=== PATIENT | male | born 1960 | race African-American/Black ===

== ENCOUNTER 2016-09-20 16:15 | Inpatient (IN) | payer OTHER ==
--- NOTE | 2016-09-20 16:34 | PDOC ---
History of Present Illness - History of Present Illness Initial Comments: 09/20/16 17:05 The patient is a 55 year old with a past medical hx of autism, type 2 diabetes mellitus, hyperlipidemia, hypertension who presents to the ED via EMS for evaluation of a possible seizure while he was on the bus ride home from school. Per EMS, the business banking manager noted the patient had a seizure for 2-3 minutes, the nature of the seizure is unknown. The business banking manager states the patient vomited and defecated. EMS notes he has been post-ictal ever since and his blood pressure was 110/70 en route to the ED. The family denies a hx of seizure, and there has been no change in medications. The patient was in his usual state of health in the morning before he left for school. The patient lives with sister and brother in law. Allergies: NKDA Social:Lives at home with his sister and brother in law. Surgical: None reported PCP: N/A <Connie Salinas - Last Filed: 09/20/16 17:15> <Trevor Sorto - Last Filed: 09/20/16 20:28> - General History Source: EMS, Old Records Exam Limitations: Clinical Condition <Aniya Simons - Last Filed: 09/21/16 09:40> - General Stated Complaint: SEIZURES Time Seen by Provider: 09/20/16 16:33 Past History <Connie Salinas - Last Filed: 09/20/16 17:15> <Trevor Sorto - Last Filed: 09/20/16 20:28> - Past Medical History Diabetes: Yes HTN: Yes - Immunization History Immunization Up to Date: Yes - Psycho/Social/Smoking Cessation Hx Anxiety: No Suicidal Ideation: No Smoking History: Never smoked Have you smoked in the past 12 months: No Hx Alcohol Use: No Drug/Substance Use Hx: No Substance Use Type: None Hx Substance Use Treatment: No <Aniya Simons - Last Filed: 09/21/16 09:40> - Past Medical History Allergies/Adverse Reactions: Allergies Allergy/AdvReac Type Severity Reaction Status Date / Time No Known Allergies Allergy Verified 09/20/16 18:07 Home Medications: Ambulatory Orders Atorvastatin Ca [Lipitor] 40 mg PO HS 01/15/14 Metformin HCl [Glucophage -] 500 mg PO BID 01/15/14 Risperidone [Risperdal] 0.25 mg PO DAILY 01/15/14 Lisinopril 5 mg PO DAILY 08/26/16 Sertraline HCl [Zoloft -] 100 mg PO DAILY 08/26/16 Amox-Tr/K Cl [Augmentin 875-125mg Tablet -] 1 tab PO BID@0800,1730 #12 tablet Ferrous Sulfate [Feosol] 325 mg PO TIDCM ud 09/03/16 Pantoprazole Sodium [Protonix -] 40 mg PO DAILY #30 tablet.ec 09/03/16 Clarithromycin 500 mg PO BID 09/20/16 Omeprazole 20 mg PO BID 09/20/16 Review of Systems - Review of Systems Able to Perform ROS?: No (clinical condition) <Connie Salinas - Last Filed: 09/20/16 17:15> *Physical Exam - Physical Exam Comments: 09/20/16 17:15 GENERAL: +Post-ictal. The patient is in no acute distress. Responds to name. HEAD: Normal with no signs of trauma. EYES: PERRLA, sclera anicteric, conjunctiva clear. ENT: Ears normal, nares patent, oropharynx clear without exudates. Moist mucous membranes. NECK: Normal range of motion, supple without lymphadenopathy, JVD, or masses. LUNGS: Breath sounds equal, clear to auscultation bilaterally. No wheezes, and no crackles. HEART:Regular rate and rhythm, normal S1 and S2 without murmur, rub or gallop. ABDOMEN: Soft, nontender, normoactive bowel sounds. No guarding, no rebound. EXTREMITIES: Normal range of motion, no edema. No clubbing or cyanosis. No erythema, or tenderness. NEUROLOGICAL: +Post-ictal, not responding to commands. MUSCULOSKELETAL: No obvious deformities SKIN: Warm, Dry, normal turgor, no rashes or lesions noted. <Connie Salinas - Last Filed: 09/20/16 17:15> - Vital Signs Last Vital Signs Temp Pulse Resp BP Pulse Ox 100.6 F H 144 H 25 H 181/97 95 09/20/16 20:01 09/20/16 20:01 09/20/16 20:01 09/20/16 20:01 09/20/16 20:01 <Trevor Sorto - Last Filed: 09/20/16 20:28> Heart Score/ECG Review #1 ECG reviewed & interpreted by me at: 19:15 09/20/16 19:15 Twelve-lead EKG was performed and reviewed by me. There is normal sinus rhythm with a tachycardiac rate of 122 bpm. Right axis deviation. RBBB. T wave inversion III <Aniya Simons - Last Filed: 09/21/16 09:40> ED Treatment Course - LABORATORY CBC & Chemistry Diagram: 09/20/16 17:58 09/20/16 17:58 - ADDITIONAL ORDERS Additional order review: Laboratory Results 09/20/16 09/20/16 20:10 17:58 Puncture Site Right radial ABG pH 7.40 ABG pCO2 at Pt Temp 34.2 L ABG pO2 at Pt Temp 73.7 L ABG HCO3 20.5 L ABG O2 Sat (Measured) 93.1 ABG O2 Content 14.1 L ABG Base Excess -3.2 L Waqas Test Positive Carboxyhemoglobin 0.7 Methemoglobin 2.3 H O2 Delivery Device Nonrebreather Oxygen Flow Rate 100% PEEP 0.0 Sodium 140 Potassium 4.1 Chloride 103 Carbon Dioxide 26 Anion Gap 11 BUN 11 D Creatinine 0.9 Creat Clearance w eGFR > 60 Random Glucose 155 H D Calcium 8.5 Total Bilirubin 0.3 AST 16 D ALT 21 D Alkaline Phosphatase 75 Creatine Kinase 74 Troponin I < 0.02 Total Protein 6.7 Albumin 3.3 L 09/20/16 17:58 RBC 4.50 MCV 70.5 L MCHC 31.1 L RDW 19.6 H MPV 6.4 L Neutrophils % 69.8 D Lymphocytes % 19.6 D Monocytes % 10.2 Eosinophils % 0.1 D Basophils % 0.3 <Trevor Sorto - Last Filed: 09/20/16 20:28> - LABORATORY CBC & Chemistry Diagram: 09/21/16 06:05 09/21/16 06:05 <Aniya Simons - Last Filed: 09/21/16 09:40> Medical Decision Making - Medical Decision Making A portion of this note was documented by scribe services under my direction. I have reviewed the details of the note, within reason, and agree with the documentation with the following case summary and management plan written by me. Nursing documentation reviewed and incorporated into medical decision making 55 yo M h/o developmental delay, lives with his sister Pt goes to a day program While on the bus home, pt apparently had a seizure He slumped forward, vomited, no rhythmic shaking reported No rhythmic shaking noted (+) incontinent of stool Upon arrival to the ER, pt somnolent, responsive to his name Did not say words or follow commands Pt family members now present to give additional history They state that this patient is largely non verbal He says a few words, like, "Eat, popcorn, cookie" Pt upon their arrival was more awake When asked how he is doing, pt responds "Eat" No pain on palpation of the abdomen No cough or rhonchi No bruising or deformity noted of the head No nuchal rigidity pt responds to commands ("lift legs", "squeeze hand") No history of seizures in the past Only new meds are for H. pylori (Clarthromycin, Amoxiciillin) No recent travel No known head trauma DD includes: Stroke, Intra cranial mass, Intracranial hemorrhage, Infection, Metabolc Disturbance/Electrolyte abnormality, epilepsy Will do: basic labs, head CT, cervical spine CT, UA, Urine culture Will re assess No fever on initial examination Pt back to his mental baseline after a post ictal period Upon re assessment, Pt feeding himself crackers and water Pt pushed away the sandwich given to him Noted to be tremulous Chart reviewed Pt reported to me as Afebrile but temp not documented Although less likely given pt mentation back to normal, Pt still needs rectal temp as this is possibly still on the differential Pt awaiting CT, labs, temp Pt signed out to Dr Sorto for further management at 7:15pm I have explained to pt family that he will need to be admitted <Aniya Simons - Last Filed: 09/21/16 09:40> *DC/Admit/Observation/Transfer - Attestations Scribe Attestion: 09/20/16 16:54 Documentation prepared by Connie Salinas, acting as medical office manager for Aniya Simons MD/. <Connie Salinas - Last Filed: 09/20/16 17:15> <Trevor Sorto - Last Filed: 09/20/16 20:28> <Aniya Simons - Last Filed: 09/21/16 09:40> Diagnosis at time of Disposition: New onset seizure, Tachycardia
[2016-09-20 18:07] VITALS: BMI 24.3
[2016-09-20 18:15] LABS: BASOPHIL 0.3 % (0-2.0); EOSINOPHIL 0.1 % (0-4.5); MCH 21.9 pg (25.7-33.7); MCHC 31.1 g/dl (32.0-35.9); MEAN CELL VOLUME 70.5 fl (80-96); MEAN PLT VOLUME 6.4 fl (7.5-11.1); NEUTROPHILS 69.8 % (42.8-82.8); PLATELET COUNT 237 K/MM3 (134-434); RDW 19.6 % (11.9-15.9); WHITE BLOOD COUNT 9.1 K/mm3 (4.0-10.0)
[2016-09-20 18:38] LABS: ALBUMIN 3.3 g/dl (3.4-5.0); ANION GAP 11 (8-16); BILIRUBIN,TOTAL 0.3 mg/dL (0.2-1.0); CALCIUM 8.5 mg/dL (8.5-10.1); CO2 26 mmol/L (21-32); CREATININE 0.9 mg/dL (0.7-1.3); GLUCOSE,RANDOM 155 mg/dL (74-106); SGOT/AST 16 U/L (15-37); SGPT/ALT 21 U/L (12-78); TOT PROT 6.7 g/dl (6.4-8.2)
[2016-09-20 18:40] LABS: ALK PHOS 75 U/L (45-117); TROPONIN I < 0.02 ng/ml (0.00-0.05)
[2016-09-20 18:55] LABS: ANISOCYTOSIS 1+; HYPOCHROMIA 2+; PLATELET COMMENT2 NO CLOTTING DETECTED; PLATELET ESTIMATE ADEQUATE (NORMAL)
[2016-09-20 20:13] LABS: ARTERIAL BLD GAS O2 SATURATION 93.1 % (90-98.9); ARTERIAL BLOOD GAS BASE EXCESS -3.2 meq/l (-2-2); ARTERIAL BLOOD GAS HCO3 20.5 meq/L (22-26); ARTERIAL BLOOD GAS PO2 73.7 mmHg (80-100)
[2016-09-20 20:14] LABS: ALLENS TEST POSITIVE; ART PUNCT SITE RIGHT RADIAL; LPM/O2% 100%; METHEMOGLOBIN 2.3 % (0.4-1.5); PT. ON O2? YES; TYPE OF O2 NONREBREATHER
--- NOTE | 2016-09-20 20:29 | PDOC ---
*Physical Exam - Vital Signs Last Vital Signs Temp Pulse Resp BP Pulse Ox 100.6 F H 144 H 25 H 181/97 95 09/20/16 20:01 09/20/16 20:01 09/20/16 20:01 09/20/16 20:01 09/20/16 20:01 ED Treatment Course - LABORATORY CBC & Chemistry Diagram: 09/20/16 17:58 09/20/16 17:58 - ADDITIONAL ORDERS Additional order review: Laboratory Results 09/20/16 09/20/16 20:10 17:58 Puncture Site Right radial ABG pH 7.40 ABG pCO2 at Pt Temp 34.2 L ABG pO2 at Pt Temp 73.7 L ABG HCO3 20.5 L ABG O2 Sat (Measured) 93.1 ABG O2 Content 14.1 L ABG Base Excess -3.2 L Waqas Test Positive Carboxyhemoglobin 0.7 Methemoglobin 2.3 H O2 Delivery Device Nonrebreather Oxygen Flow Rate 100% PEEP 0.0 Sodium 140 Potassium 4.1 Chloride 103 Carbon Dioxide 26 Anion Gap 11 BUN 11 D Creatinine 0.9 Creat Clearance w eGFR > 60 Random Glucose 155 H D Calcium 8.5 Total Bilirubin 0.3 AST 16 D ALT 21 D Alkaline Phosphatase 75 Creatine Kinase 74 Troponin I < 0.02 Total Protein 6.7 Albumin 3.3 L 09/20/16 17:58 RBC 4.50 MCV 70.5 L MCHC 31.1 L RDW 19.6 H MPV 6.4 L Neutrophils % 69.8 D Lymphocytes % 19.6 D Monocytes % 10.2 Eosinophils % 0.1 D Basophils % 0.3 *DC/Admit/Observation/Transfer Diagnosis at time of Disposition: New onset seizure, Tachycardia - Discharge Dispostion Condition at time of disposition: Stable Admit: Yes
[2016-09-20 20:37] LABS: URINE APPEARANCE CLEAR; URINE BILIRUBIN NEGATIVE (NEGATIVE); URINE BLOOD NEGATIVE (NEGATIVE); URINE COLOR YELLOW; URINE GLUCOSE (UA) NEGATIVE (NEGATIVE); URINE KETONE TRACE (NEGATIVE); URINE LEUK ESTERASE NEGATIVE (NEGATIVE); URINE NITRITE NEGATIVE (NEGATIVE); URINE UROBILINOGEN 2.0 E.U/dl E.U./dl (0.2-1.0)
[2016-09-20 20:39] LABS: URINE PROTEIN 1+ (NEGATIVE)
[2016-09-20 20:40] LABS: URINE RBC 2 /hpf (0-3); URINE WBC 3 /hpf (3-5)
[2016-09-20 20:41] LABS: URINE MUCUS FEW
[2016-09-20] MEDS ORDERED: ACETAMINOPHEN 1000 MG/100 ML VIAL (NON FORMULARY) IVPB ONE (22:34)
[2016-09-20] MEDS ORDERED: ATORVASTATIN CA 40 MG TABLET (FP) ONE (22:36)
[2016-09-20] MEDS ORDERED: ACETAMINOPHEN INJECTION 100 ML IVPB ONE (22:36)
[2016-09-20] MEDS: ATORVASTATIN CA 40 MG TABLET (FP) PO SCH (22:57)
[2016-09-20] MEDS ORDERED: INSULIN (NOVOLOG) ASPART 100 UNITS/ML 10ML VIAL ONE (23:53)
[2016-09-20] MEDS: INSULIN SLIDING SCALE (NOVOLOG) 1 VIAL SQ SCH (23:57)
[2016-09-21 01:06] LABS: TROPONIN I < 0.02 ng/ml (0.00-0.05)
[2016-09-21] MEDS: INSULIN SLIDING SCALE (NOVOLOG) 1 VIAL SQ SCH ×4 (06:15→22:37)
[2016-09-21 08:23] LABS: MCH 22.2 pg (25.7-33.7); MCHC 31.5 g/dl (32.0-35.9); MEAN CELL VOLUME 70.5 fl (80-96); MEAN PLT VOLUME 6.9 fl (7.5-11.1); PLATELET COUNT 176 K/MM3 (134-434); WHITE BLOOD COUNT 23.6 K/mm3 (4.0-10.0)
[2016-09-21] MEDS: LISINOPRIL 5 MG TABLET (FP) PO SCH ×2 (08:33→09:13)
[2016-09-21] MEDS: PANTOPRAZOLE 40 MG TABLET (FP) PO SCH ×2 (08:33→09:13)
[2016-09-21] MEDS: SERTRALINE HCL 50 MG TABLET (FP) PO SCH ×2 (08:33→09:14)
[2016-09-21] MEDS: metFORMIN HCL 500 MG TABLET (FP) PO SCH ×2 (08:33→16:43)
[2016-09-21] MEDS: FERROUS SO4 325 MG TABLET (FP) PO SCH ×3 (08:33→17:04)
[2016-09-21 08:53] LABS: ALBUMIN 3.3 g/dl (3.4-5.0); ALK PHOS 83 U/L (45-117); ANION GAP 12 (8-16); BILIRUBIN,TOTAL 0.7 mg/dL (0.2-1.0); CALCIUM 8.7 mg/dL (8.5-10.1); CO2 27 mmol/L (21-32); CREATININE 0.7 mg/dL (0.7-1.3); GLUCOSE,RANDOM 82 mg/dL (74-106); SGOT/AST 80 U/L (15-37); SGPT/ALT 106 U/L (12-78); TOT PROT 6.5 g/dl (6.4-8.2); TROPONIN I < 0.02 ng/ml (0.00-0.05)
[2016-09-21] MEDS: risperiDONE 0.25 MG TABLET (FP) PO SCH (09:14)
--- NOTE | 2016-09-21 09:19 | HP ---
Admitting History and Physical - Admission History of Present Illness: 55 year old with a past medical hx of autism, type 2 diabetes mellitus, hyperlipidemia, hypertension who presents to the ED via EMS for evaluation of a possible seizure while he was on the bus ride home from school. Per EMS, the business continuity planner noted the patient had a seizure for 2-3 minutes, the nature of the seizure is unknown. The business continuity planner states the patient vomited and defecated. EMS notes he has been post-ictal ever since and his blood pressure was 110/70 en route to the ED. The family denies a hx of seizure, and there has been no change in medications. The patient was in his usual state of health in the morning before he left for school. The patient lives with sister and brother in law. 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) Cardiovascular: Yes: HTN, Hyperlipdemia Pulmonary: No: COPD Endocrine: Yes: Diabetes Mellitus - Smoking History Smoking history: Never smoked Have you smoked in the past 12 months: No - Alcohol/Substance Use Hx Alcohol Use: No Home Medications - Allergies Allergies/Adverse Reactions: Allergies Allergy/AdvReac Type Severity Reaction Status Date / Time No Known Allergies Allergy Verified 09/20/16 18:07 - Home Medications Home Medications: Ambulatory Orders Atorvastatin Ca [Lipitor] 40 mg PO HS 01/15/14 Metformin HCl [Glucophage -] 500 mg PO BID 01/15/14 Risperidone [Risperdal] 0.25 mg PO DAILY 01/15/14 Lisinopril 5 mg PO DAILY 08/26/16 Sertraline HCl [Zoloft -] 100 mg PO DAILY 08/26/16 Amox-Tr/K Cl [Augmentin 875-125mg Tablet -] 1 tab PO BID@0800,1730 #12 tablet Ferrous Sulfate [Feosol] 325 mg PO TIDCM ud 09/03/16 Pantoprazole Sodium [Protonix -] 40 mg PO DAILY #30 tablet.ec 09/03/16 Clarithromycin 500 mg PO BID 09/20/16 Omeprazole 20 mg PO BID 09/20/16 Review of Systems Unable to obtain ROS, reason: DUE TO AUTISM Physical Examination Vital Signs: Vital Signs Temperature 98.0 F 09/21/16 06:00 Pulse Rate 96 H 09/21/16 06:00 Respiratory Rate 20 09/21/16 06:00 Blood Pressure 111/59 09/21/16 06:00 O2 Sat by Pulse Oximetry (%) 100 09/21/16 02:25 Eyes: Yes: Conjunctiva Clear HENT: No: Pharyngeal Erythema Cardiovascular: Yes: Tachycardia, S1, S2 Respiratory: Yes: Regular, CTA Bilaterally Gastrointestinal: Yes: Normal Bowel Sounds, Soft. No: Tenderness Edema: No Neurological: Yes: Alert, Pre-Existing Deficit Labs: CBC, BMP 09/21/16 06:05 09/21/16 06:05 Imaging - Results Chest X-ray: Report Reviewed (NAD) Cat Scan: Report Reviewed (NAD) Problem List - Problems (1) New onset seizure Assessment/Plan: W/U INITIATED NEURO CONSULT Code(s): R56.9 - UNSPECIFIED CONVULSIONS (2) Tachycardia Assessment/Plan: MAYBE DUE TO FEVER MONITOR Code(s): R00.0 - TACHYCARDIA, UNSPECIFIED (3) Developmental disability Code(s): F89 - UNSPECIFIED DISORDER OF PSYCHOLOGICAL DEVELOPMENT (4) Hypertension Assessment/Plan: MONITOR ON JUANI Code(s): I10 - ESSENTIAL (PRIMARY) HYPERTENSION (5) Fever Assessment/Plan: R/O ASPIRATION BC CXR ABX ID Code(s): R50.9 - FEVER, UNSPECIFIED (6) Leukocytosis Assessment/Plan: ABOVE Code(s): D72.829 - ELEVATED WHITE BLOOD CELL COUNT, UNSPECIFIED (7) Anemia Assessment/Plan: MONITOR W/U ORDERED GI Code(s): D64.9 - ANEMIA, UNSPECIFIED (8) Abnormal LFTs Assessment/Plan: FOLLOW LABS US GI Code(s): R79.89 - OTHER SPECIFIED ABNORMAL FINDINGS OF BLOOD CHEMISTRY
--- NOTE | 2016-09-21 09:43 | CONSULT ---
Consultation: REQUESTING PROVIDER: CONSULT REQUEST: We have been asked to medically evaluate this patient for fever. HISTORY OF PRESENT ILLNESS: Unable to obtain history from the patient. Hence obtained from his sister over the phone. 55 year old male was brought in via EMS after a witnessed seizure. Patient was returning from a pre-vocational school to home and the business systems lead noticed seizure (type unknown) lasted for 2-3 minutes along with vomiting and defecation. No past h/o of seizure. Patient got recently diagnosed with H. pylori and was given triple therapy ( Augmentin, Clarithromycin, pantoprazole taken since 3 days, hasn't completed the two week course). Patient was recently admitted here at [facility] and was treated for cellulitis for right index finger. Past Medical Hx: DM-II, HTN, HLD, Autism, H.pylori Allergies: NKDA Hospitalization: last admission 08/26/16 for cellulitis of right index finger Social Hx- Never smoked, never took alcohol, no illicit drug use Baseline: Patient able to walk, do his daily activities, never on diapers, able to speak words like "popcorn, eat, sit". Patient has been living with his sister and brother in law since 16 years. He has a alf placement starting the end of September. PCP: Dr. Peres ([facility]) REVIEW OF SYSTEMS: couldn't be obtained PHYSICAL EXAMINATION Vital Signs - 24 hr 09/20/16 09/20/16 09/21/16 21:00 22:58 00:19 Temperature 100.2 F H Pulse Rate Pulse Rate [ 134 H 137 H Radial] Respiratory 38 H 30 H Rate Blood Pressure Blood Pressure 125/66 96/53 [Left Arm] O2 Sat by Pulse 100 100 Oximetry (%) 09/21/16 09/21/16 09/21/16 00:25 00:30 02:25 Temperature 99.6 F Pulse Rate 104 H Pulse Rate [ 101 H Radial] Respiratory 21 20 Rate Blood Pressure 110/60 Blood Pressure 119/64 [Left Arm] O2 Sat by Pulse 100 100 Oximetry (%) 09/21/16 06:00 Temperature 98.0 F Pulse Rate 96 H Pulse Rate [ Radial] Respiratory 20 Rate Blood Pressure 111/59 Blood Pressure [Left Arm] O2 Sat by Pulse Oximetry (%) GENERAL: Awake, alert, in no acute distress. HEAD: Normal with no signs of trauma. EYES: PEERLA, no pallor or icterus. EARS, NOSE, THROAT: Ears normal. NECK: Supple. LUNGS: Uncooperative hence couldn't listen to added sounds. HEART: S1, S2 no murmur. ABDOMEN: Soft, nontender, not distended, normoactive bowel sounds, no guarding, no rebound, no masses. No hepatomegaly or splenomegaly. MUSCULOSKELETAL: Normal range of motion at all joints. No bony deformities or tenderness. No CVA tenderness. UPPER EXTREMITIES: 2+ pulses, warm, well-perfused. No cyanosis. No clubbing. Cap refill <2 seconds. No peripheral edema. LOWER EXTREMITIES: 2+ pulses, warm, well-perfused. No calf tenderness. No peripheral edema. NEUROLOGICAL: Cranial nerves II-XII intact. Reflexes intact. Spoke single words like "popcorn, eat, sit" PSYCHIATRIC:Poor eye contact. Appropriate mood and affect. SKIN: Warm, dry, normal turgor, no rashes or lesions noted. Laboratory Results - last 24 hr 09/20/16 09/21/16 09/21/16 22:54 00:26 06:05 WBC 23.6 H D RBC 4.45 Hgb 9.9 L Hct 31.4 L MCV 70.5 L MCHC 31.5 L RDW 20.0 H Plt Count 176 D MPV 6.9 L Neutrophils % Y Lymphocytes % Y Sodium Potassium Chloride Carbon Dioxide Anion Gap BUN Creatinine Creat Clearance w eGFR POC Glucometer [phone] Random Glucose Calcium Total Bilirubin AST ALT Alkaline Phosphatase Creatine Kinase 145 Troponin I < 0.02 Total Protein Albumin 09/21/16 09/21/16 06:05 06:14 WBC RBC Hgb Hct MCV MCHC RDW Plt Count MPV Neutrophils % Lymphocytes % Sodium 140 Potassium 3.5 Chloride 101 Carbon Dioxide 27 Anion Gap 12 BUN 13 Creatinine 0.7 D Creat Clearance w eGFR > 60 POC Glucometer 97 Random Glucose 82 D Calcium 8.7 Total Bilirubin 0.7 D AST 80 H D ALT 106 H D Alkaline Phosphatase 83 Creatine Kinase 243 D Troponin I < 0.02 Total Protein 6.5 Albumin 3.3 L Active Medications Generic Name Dose Route Start Last Admin Trade Name Freq PRN Reason Stop Dose Admin Atorvastatin Calcium 40 mg 09/20/16 22:00 09/20/16 22:57 Lipitor - PO 40 mg HS INEZ Administration Ferrous Sulfate 325 mg 09/21/16 08:00 09/21/16 08:33 Feosol - PO 325 mg TIDCM INEZ Administration Ceftriaxone Sodium 1 gm/ 100 mls @ 200 mls/hr 09/21/16 10:00 Dextrose IVPB DAILY [facility] Insulin Aspart 1 vial 09/20/16 22:00 09/21/16 06:15 Novolog Vial Sliding Scale - SQ Not Given ACHS [facility] Protocol Lisinopril 5 mg 09/21/16 10:00 09/21/16 09:13 Prinivil PO Not Given DAILY [facility] Metformin HCl 500 mg 09/21/16 07:00 09/21/16 08:33 Glucophage - PO 500 mg BIDI INEZ Administration Pantoprazole Sodium 40 mg 09/21/16 10:00 09/21/16 09:13 Protonix - PO Not Given DAILY [facility] Risperidone 0.25 mg 09/21/16 10:00 09/21/16 09:14 Risperdal - PO Not Given DAILY INEZ Sertraline HCl 100 mg 09/21/16 10:00 09/21/16 09:14 Zoloft - PO Not Given DAILY [facility] 55 year old male with significant past medical history of Autism, DM, HTN, HLD, H. pylori was brought in via EMS after a witnessed seizure. Assessment:- 1. Witnessed Seizure 2. Possible aspiration pneumonia 3. Austism 4. HTN 5. HLD 6. DM-II 7. H. pylori recently diagnosed Plan:- - Unusual to have new onset seizure at the age of 55 years, could be due to metabolic syndrome vs epilepsy - CT head negative. EEG ordered. - Possible aspiration pneumonia given the h/o vomiting post seizure. CXR showed new Right patchy infiltrate. Initial CXR was negative - Blood cultures/Urine cultures pending- results may alter since patient was being given triple therapy (clarithromycin, pantoprazole, augmentin) for H. pylori. - Patient started on Ceftriaxone and Metronidazole - Monitor for seizure activity Illness, Investigation and Plan of care explained to the patient's sister over the phone. She verbalized understanding. Case seen and discussed with Dr. Coronel. Thank you for the consultative opportunity. Visit type - Emergency Visit Emergency Visit: Yes ED Registration Date: 09/20/16 Care time: The patient presented to the Emergency Department on the above date and was hospitalized for further evaluation of their emergent condition. - New Patient This patient is new to me today: Yes Date on this admission: 09/21/16 - Critical Care Critical Care patient: No
[2016-09-21] MEDS ORDERED: CEFTRIAXONE 1 GM in DEXTROSE 5%-WATER - 100 ML IVPB SCH (10:00)
[2016-09-21] MEDS ORDERED: PATIENT'S OWN MEDICATION (NON-FORMULARY) (Sertraline Hcl 100 MG) PO SCH (10:00)
[2016-09-21 10:50] LABS: ANISOCYTOSIS 1+; PLATELET ESTIMATE ADEQUATE (NORMAL)
[2016-09-21 10:51] LABS: HYPOCHROMIA 1+
[2016-09-21] MEDS: cefTRIAXone 1 GM/50 ML BAG (PRE-DOCKED) IVPB SCH (11:10)
--- NOTE | 2016-09-21 11:25 | EKG ---
Test Reason : Blood Pressure : / mmHG Vent. Rate : 122 BPM Atrial Rate : 122 BPM P-R Int : 116 ms QRS Dur : 118 ms QT Int : 338 ms P-R-T Axes : 043 169 008 degrees QTc Int : 481 ms SINUS TACHYCARDIA POSSIBLE LEFT ATRIAL ENLARGEMENT RIGHT BUNDLE BRANCH BLOCK LEFT POSTERIOR FASCICULAR BLOCK BIFASCICULAR BLOCK POSSIBLE INFERIOR INFARCT (CITED ON OR BEFORE 09-OCT-2003) ABNORMAL ECG Confirmed by JENNI KENDALL MD ([id number]) on 09/21/2016 11:25:04 AM Referred By: Confirmed By:JENNI KENDALL MD
[2016-09-21 11:42] LABS: FERRITIN 18.35 ng/ml (16.4-293.9); THYROID STIMULATING HORMONE 1.45 uIU/ml (0.358-3.74)
--- NOTE | 2016-09-21 12:16 | EKG ---
Test Reason : Blood Pressure : / mmHG Vent. Rate : 134 BPM Atrial Rate : 134 BPM P-R Int : 124 ms QRS Dur : 102 ms QT Int : 286 ms P-R-T Axes : 039 168 032 degrees QTc Int : 427 ms POOR DATA QUALITY, INTERPRETATION MAY BE ADVERSELY AFFECTED SINUS TACHYCARDIA INCOMPLETE RIGHT BUNDLE BRANCH BLOCK ABNORMAL ECG Confirmed by JENNI KENDALL MD ([id number]) on 09/21/2016 12:16:15 PM Referred By: Confirmed By:JENNI KENDALL MD
--- NOTE | 2016-09-21 13:07 | CONSULT ---
Consult Consult Specialty:: Cardiology Referred by:: Dr Hankins Reason for Consultation:: Sinus Tachycardia - History of Present Illness Chief Complaint: Possible seizures History of Present Illness: 55 yo autistic male with type 2 diabetes mellitus, hyperlipidemia, hypertension here via EMS for evaluation of a possible seizure while he was on the bus. By report, business intelligence consultant noted the patient had a seizure for 2-3 minute, vomited and defecated. EMS noted him to be post-ictal -> blood pressure was 110/70 en route to the ED. The family denies a hx of seizure, or recent change in medications. He was in his usual state of health the morning before he left. Were asked to see him because of tachycardia. 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) Cardio/Vascular: Yes: HTN, Hyperlipdemia Pulmonary: No: COPD Endocrine: Yes: Diabetes Mellitus - Alcohol/Substance Use Hx Alcohol Use: No - Smoking History Smoking history: Never smoked Have you smoked in the past 12 months: No Home Medications - Allergies Allergies/Adverse Reactions: Allergies Allergy/AdvReac Type Severity Reaction Status Date / Time No Known Allergies Allergy Verified 09/20/16 18:07 - Home Medications Home Medications: Ambulatory Orders Atorvastatin Ca [Lipitor] 40 mg PO HS 01/15/14 Metformin HCl [Glucophage -] 500 mg PO BID 01/15/14 Risperidone [Risperdal] 0.25 mg PO DAILY 01/15/14 Lisinopril 5 mg PO DAILY 08/26/16 Sertraline HCl [Zoloft -] 100 mg PO DAILY 08/26/16 Amox-Tr/K Cl [Augmentin 875-125mg Tablet -] 1 tab PO BID@0800,1730 #12 tablet Ferrous Sulfate [Feosol] 325 mg PO TIDCM ud 09/03/16 Pantoprazole Sodium [Protonix -] 40 mg PO DAILY #30 tablet.ec 09/03/16 Clarithromycin 500 mg PO BID 09/20/16 Omeprazole 20 mg PO BID 09/20/16 Family Disease History - Family Disease History Family History: Unable to Obtain (due to MS) Review of Systems Unable to obtain ROS, reason: due to MS Physical Exam Vital Signs: Vital Signs Temperature 98.0 F 09/21/16 06:00 Pulse Rate 96 H 09/21/16 06:00 Respiratory Rate 20 09/21/16 06:00 Blood Pressure 111/59 09/21/16 06:00 O2 Sat by Pulse Oximetry (%) 100 09/21/16 02:25 Constitutional: Yes: No Distress Eyes: Yes: Conjunctiva Clear HENT: Yes: Atraumatic Neck: Yes: Supple Cardiovascular: Yes: Regular Rate and Rhythm. No: Murmur Respiratory: Yes: Rhonchi (at right base). No: Rales, Wheezes Gastrointestinal: Yes: Normal Bowel Sounds, Soft. No: Tenderness Extremities: Yes: Other (warm) Edema: No Peripheral Pulses WNL: Yes Neurological: Yes: Other (awake, asking for pocorn) Labs: CBC, BMP 09/21/16 06:05 09/21/16 06:05 Imaging - Results Chest X-ray: Report Reviewed, Image Reviewed EKG: Report Reviewed, Image Reviewed (ST with LPFB, inc RBBB) Assessment/Plan 55 yo autistic male with the above history, here with possible new seizure with vomitting -> febrile, new elevated WBC and seems to be developing a new right infiltrate. In the above setting, noted with ST -. reactive rhythm No acute cardiac event -. trop I neg X3 No CHF TSH nl Rec: Treat underlying issue, ie infection Keep hydrated Follow HR (which is much better) -. if increasing and remains elevated, consider adding BB Thanks! We'll follow!
--- NOTE | 2016-09-21 13:35 | PN ---
Progress Note (short form) - Note Progress Note: PULMONARY CONSULTATION DICTATED 09/21/16 IMP RLL PNEUMONIA LIKELY ASPIRATION SEIZURES AUTISM LACTIC ACIDOSIS HTN DM HLD PLAN IV ANTIBIOTICS NASAL O2 F/U CHEST X-RAY INHALED BRONCHODILATORS TREND LACTATE SEIZURE PRECAUTIONS DR DON Problem List - Problems (1) Fever Code(s): R50.9 - FEVER, UNSPECIFIED (2) Leukocytosis Code(s): D72.829 - ELEVATED WHITE BLOOD CELL COUNT, UNSPECIFIED (3) New onset seizure Code(s): R56.9 - UNSPECIFIED CONVULSIONS (4) Tachycardia Code(s): R00.0 - TACHYCARDIA, UNSPECIFIED (5) Developmental disability Code(s): F89 - UNSPECIFIED DISORDER OF PSYCHOLOGICAL DEVELOPMENT (6) Hyperlipidemia Code(s): E78.5 - HYPERLIPIDEMIA, UNSPECIFIED (7) Hypertension Code(s): I10 - ESSENTIAL (PRIMARY) HYPERTENSION (8) Type 2 diabetes mellitus Code(s): E11.9 - TYPE 2 DIABETES MELLITUS WITHOUT COMPLICATIONS (9) Aspiration pneumonia Code(s): J69.0 - PNEUMONITIS DUE TO INHALATION OF FOOD AND VOMIT
[2016-09-21] MEDS ORDERED: ALBUTEROL SO4 2.5/IPRATROPIUM 0.5 INH SOL 3 ML VIAL.NEB. NEB PRN (13:36)
--- NOTE | 2016-09-21 14:20 | PN ---
Teaching Attending Note Name of Resident: Radha Rosales ATTENDING PHYSICIAN STATEMENT I saw and evaluated the patient. I reviewed the resident's note and discussed the case with the resident. I agree with the resident's findings and plan as documented. SUBJECTIVE witness seizure, with vomiting, now new RLL infiltrate low grade fever, no respiratory distress quite alert OBJECTIVE: Vital Signs Period Temp Pulse Resp BP Sys/Soliz Pulse Ox Last 24 Hr 98.0 F-100.6 F 96-144 18-38 96-181/53-97 95-100 fair dentition neck supple cor-rrr lungs decreased bs at bases abd soft,nt ext no edema CBC, BMP 09/21/16 06:05 09/21/16 06:05 cxray RLL infiltrate (new) ASSESSMENT AND PLAN: probable aspiration pneumonia new onset seizure rocephin/flagyl neurology evaluation pending Problem List - Problems (1) Aspiration pneumonia Code(s): J69.0 - PNEUMONITIS DUE TO INHALATION OF FOOD AND VOMIT (2) New onset seizure Code(s): R56.9 - UNSPECIFIED CONVULSIONS
--- NOTE | 2016-09-21 14:54 | CONS ---
DATE OF CONSULTATION: 09/21/2016 REFERRING PHYSICIAN: Vin Gibson MD HISTORY: Obtained from the chart. The patient is a 55-year-old black autistic male with a past medical history of type 2 diabetes mellitus, hyperlipidemia, hypertension admitted to [facility] status post seizure. The patient apparently was on a bus and was noted by the substance abuse specialist to have a seizure lasting approximately 2-3 minutes. It was noted that he vomited and defecated. EMS was called and noted him to be postictal with a blood pressure of 170/70 en route to the emergency room. The patient was noted on chest x-ray to have congestion, right lower lobe pneumonia. The patient, apparently according to the chart and family, denied any history of seizures or recent change in medications. Apparently he was in a normal state of health prior to leaving his house the morning of admission. PAST MEDICAL HISTORY: Again includes autism, hypertension, hyperlipidemia, questionable COPD, diabetes. REVIEW OF SYSTEMS: Unable to obtain due to mental status. CURRENT MEDICATIONS: Include Prinivil, Tylenol, Rocephin, Zoloft, Risperdal, Glucophage, Lipitor, Norvasc, Theosol, and Protonix. PHYSICAL EXAMINATION: General: The patient is a well-developed, well-nourished black male awake just saying monosyllable words in no acute respiratory distress. Vital Signs: He is currently afebrile. T-max 100.2, blood pressure 111/59, respiratory rate 20, O2 saturation 92% on room air, heart rate 113. HEENT: Normocephalic and atraumatic. Neck: Supple. Heart: Regular. S1, S2. Chest: Crackles on the right. Abdomen: Soft. Bowel sounds positive. Extremities: No cyanosis or edema. LABORATORIES: WBCs 23.6, hemoglobin 9.9, hematocrit 31.9 with a platelet count 176,000. Blood gas: PH 7.40, PCO2 of 32, PO2 of 73, bicarbonate of 20, saturation 93.1. Lactate level is 2.248. BUN 13, creatinine 0.7. Chest x-ray: New patchy right lower lobe infiltrate. New from prior exam earlier on September 16, 2016. IMPRESSION: 1. Right lower lobe pneumonia, likely aspiration secondary to recent seizures. 2. Seizure disorder. 3. Autism. 4. Hypertension. 5. Type 2 diabetes mellitus. 6. Hyperlipidemia. 7. Lactic acidosis. PLAN: Broad-spectrum antibiotics. Supplemental O2. Inhaled bronchodilators. Follow up chest x-ray. Seizure precautions. Trend lactate. Monitor electrolytes, CBC. ROBERT DON M.D. [id number]
--- NOTE | 2016-09-21 15:35 | CONSULT ---
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) Cardiovascular: Yes: HTN, Hyperlipdemia Pulmonary: No: COPD Endocrine: Yes: Diabetes Mellitus - Smoking History Smoking history: Never smoked Have you smoked in the past 12 months: No - Alcohol/Substance Use Hx Alcohol Use: No History - Admission Reason For Visit: NEW ONSET SEIZURES/ TACHYCARDIA - Hearing Hearing: Normal Hearing Aide: No With Patient: No Speech Evaluation - Communication Primary Language: SETSWANA Communication: Yes: Simple Responses Oral Expression Ability: Yes: Severe Impairment (secondary to autism) - Speech Production Apraxia: Yes Able to Make Needs Known: Yes: Moderately Impaired (secondary to autism) - Speech Characteristics Voice Loudness: Normal Voice Pitch: Yes: Normal Voice Phonatory-based Quality: Yes: Normal Speech Pattern: Normal Nasal Resonance: Normal Articulation: Yes: Precise Rate of Speech: Intact Voice, Other Observations: Yes: Mouth Breathing Voice Comment: Vocal quality is WFL at this time. - Language/Auditory Comprehension Follows: Yes: 1 Stage Simple Commands Observation: Able to respond to yes/no queries: No, Yes/No Confusion: Yes, Comprehends Conversational Speech: Yes, Benefits from Slow Speech: Yes, Benefits from Repetiton: Yes, Benefits from Increased Volume of Speech: Yes - Language/Verbal Expression Able to Respond to Simple Queries: Yes: WNL (with gentle physical and gestural prompts.) Able to Communicate Wants and Needs: Yes: Severely Impaired Functional Communication Status: Yes: Severely Impaired Aware of Errors: No Attempts to Correct Errors: No Use of Gestures: Yes Written Expression: Not tested Oral Expression: Limited sample. Echolalic - Memory/Perception [facility] Memory: Yes: Moderately Impaired Short Term Memory: Yes: Moderately Impaired - Swallow Evaluation/Bedside Assessment Current Nutritional Intake: Regular, Thin Liquids Oral Secretions: Yes: WFL Tracheostomy Present: No Patient on Ventilator: No Dentition: Yes: Adequate Facial Symmetry at Rest: Symmetrical Facial Symmetry on Retraction: Symmetrical Facial Movement: Controlled Sensation: Normal Facial Comment: WFL for speech and swallowing purposes. Jaw Position: Closed at Rest Against Resistance Opening: Normal Against Resistance Closing: Normal Lips, Comment: WFL for speech and swallowing purposes. Lingual Movement: Normal Lingual Speed of Movement: Normal Lingual Movement Strgth Against Opposition: Normal Lingual Movement Characteristics: Normal Lingual Comment: WFL for speech and swallowing purposes. Laryngeal Elevation: WFL Laryngeal Movement: Able to Palpate Needs Assistance: Yes Rate of Intake: Impulsive Bolus Size: Large Labial Seal: WFL Chewing: WFL Oral Prep Time: WFL A-P Transit: WFL Timing of Swallow: WFL Other Findings/Remarks: 55 yo male seen at bedside for swallow eval to r/o dysphagia. Pt is verbal impulsive cooperative. Pt presents with Autism, AMS reduced expressive language , with PMHX of diabetes mellitis, HTN. Pt admitted to [facility] for prolonged seizure. Current diet is heart healthy regular solids and thin liquids. Pt given po trials of puree, regular solids with minimal assistance reveals impulsive rapid intake. adequate bolus control and transport. Pharyngeal swallow appears timely. No evidence of penetration / aspiration observed. NO changes in voicing or respiration observed at this time. Pt given po trials of thin liquids revealed similar results; unremarkable for dysphagia. Recommendations - Speech Evaluation, Impression/Plan Impression: 55 yo male is able to tolerate pureed, regular solids with thin liquids without s/s of dysphagia and aspiration at bedside at this time. Armoring Machine Operator Goals: Tolerate the least restrictive diet consistency without s/s of dysphagia and aspiration - Dysphagia Impressions/Plan Swallowing Skills: Impaired Dysphagia Impressions: No Impairment, Mild Impairment (Oral prep phase dysphagia secondary to impulsiveness.) Dysphagia Treatment Plan: Small Bites, Safe Rate, Elevate HOB during feed Dysphagia Evaluation Summary: Continue heart healthy solids with thin liquids as tolerated. Results given to electrical discharge machine operatorENDY Horowitz and to pcp via chart. - Recommendations Diet Consistency: Regular Medication Administration: Whole with water Liquids: Thin Liquids
[2016-09-21] MEDS: METRONIDAZOLE 500 MG PREMIXED 100 ML IVPB SCH ×2 (16:44→17:06)
[2016-09-21] MEDS ORDERED: SODIUM CHLORIDE 500 ML IV ONE (17:30)
[2016-09-21] MEDS: SODIUM CHLORIDE 1,000 ML IV SCH (18:00)
--- NOTE | 2016-09-21 18:54 | CONSULT ---
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 Per the family as reported to the medical office representative, the gentleman is able to live with his family and perform his self care. 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) Cardio/Vascular: Yes: HTN, Hyperlipdemia Pulmonary: No: COPD Endocrine: Yes: Diabetes Mellitus - Alcohol/Substance Use Hx Alcohol Use: No - Smoking History Smoking history: Never smoked Have you smoked in the past 12 months: No Home Medications - Allergies Allergies/Adverse Reactions: Allergies Allergy/AdvReac Type Severity Reaction Status Date / Time No Known Allergies Allergy Verified 09/20/16 18:07 - Home Medications Home Medications: Ambulatory Orders Atorvastatin Ca [Lipitor] 40 mg PO HS 01/15/14 Metformin HCl [Glucophage -] 500 mg PO BID 01/15/14 Risperidone [Risperdal] 0.25 mg PO DAILY 01/15/14 Lisinopril 5 mg PO DAILY 08/26/16 Sertraline HCl [Zoloft -] 100 mg PO DAILY 08/26/16 Amox-Tr/K Cl [Augmentin 875-125mg Tablet -] 1 tab PO BID@0800,1730 #12 tablet Ferrous Sulfate [Feosol] 325 mg PO TIDCM ud 09/03/16 Pantoprazole Sodium [Protonix -] 40 mg PO DAILY #30 tablet.ec 09/03/16 Clarithromycin 500 mg PO BID 09/20/16 Omeprazole 20 mg PO BID 09/20/16 Physical Exam Vital Signs: Vital Signs Temperature 98.4 F 09/21/16 18:00 Pulse Rate 126 H 09/21/16 18:00 Respiratory Rate 20 09/21/16 18:00 Blood Pressure 93/58 09/21/16 18:00 O2 Sat by Pulse Oximetry (%) 100 09/21/16 10:00 Constitutional: Yes: Calm (friendly, quite social with slurred speech except for the word "popcorn") HENT: Yes: Atraumatic Neck: Yes: Supple Cardiovascular: Yes: Regular Rate and Rhythm Respiratory: Yes: Regular Gastrointestinal: Yes: Soft Neurological: Yes: Alert, Cran Nerves II-XII Intact, Dysarthria. No: Ataxia, Facial Droop, Lethargy (motor movements symmetrerical without weakness and some atrophy with no fassiculations. DTR 2/4 except absent ankles. gait not observed and unable to assess sensory status but responds to touch.) Labs: CBC, BMP 09/21/16 06:05 09/21/16 06:05 Assessment/Plan possible seizure vs syncope Plan EEG and will add po Dilantin without loading since there was no observed seizure by biomedical manager Doubt EEG will be done by discharge, however will the patient can be evaluated and treated by Dr Wang with [facility] There is no evidence to support possible RAT POISONER herpes with sz related to the patients recent shingles. MRI of the brain to evaluate for possible mass lesion with new onset seizure in the 5th decade.
--- NOTE | 2016-09-21 18:59 | CONSULT ---
Consult Consult Specialty:: Gastroenterology Referred by:: Dr Vin Gibson - History of Present Illness Chief Complaint: anemia and elevated LFTS History of Present Illness: 55 year old male was brought in via EMS after a witnessed seizure. 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 No past h/o of seizure. Patient got recently diagnosed with H. pylori and was given triple therapy ( Augmentin, Clarithromycin, pantoprazole taken since 3 days, hasn't completed the two week course). Patient was recently admitted here at [facility] and was treated for cellulitis for right index finger. On routine labs the patient was noted to have anemia. Initially LFTs in the ER was normal subsequently became abnormal. 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) Cardio/Vascular: Yes: HTN, Hyperlipdemia Pulmonary: No: COPD Endocrine: Yes: Diabetes Mellitus - Alcohol/Substance Use Hx Alcohol Use: No - Smoking History Smoking history: Never smoked Have you smoked in the past 12 months: No Home Medications - Allergies Allergies/Adverse Reactions: Allergies Allergy/AdvReac Type Severity Reaction Status Date / Time No Known Allergies Allergy Verified 09/20/16 18:07 - Home Medications Home Medications: Ambulatory Orders Atorvastatin Ca [Lipitor] 40 mg PO HS 01/15/14 Metformin HCl [Glucophage -] 500 mg PO BID 01/15/14 Risperidone [Risperdal] 0.25 mg PO DAILY 01/15/14 Lisinopril 5 mg PO DAILY 08/26/16 Sertraline HCl [Zoloft -] 100 mg PO DAILY 08/26/16 Amox-Tr/K Cl [Augmentin 875-125mg Tablet -] 1 tab PO BID@0800,1730 #12 tablet Ferrous Sulfate [Feosol] 325 mg PO TIDCM ud 09/03/16 Pantoprazole Sodium [Protonix -] 40 mg PO DAILY #30 tablet.ec 09/03/16 Clarithromycin 500 mg PO BID 09/20/16 Omeprazole 20 mg PO BID 09/20/16 Physical Exam-GI Vital Signs: Vital Signs Temperature 98.4 F 09/21/16 18:00 Pulse Rate 126 H 09/21/16 18:00 Respiratory Rate 20 09/21/16 18:00 Blood Pressure 93/58 09/21/16 18:00 O2 Sat by Pulse Oximetry (%) 100 09/21/16 10:00 Constitutional: Yes: Well Nourished Eyes: Yes: Conjunctiva Clear HENT: Yes: Atraumatic Neck: Yes: Supple Cardiovascular: Yes: Regular Rate and Rhythm Respiratory: Yes: CTA Bilaterally ...Palpate: Yes: Soft. No: Firm/Rigid, Guarding, Hepatomegaly, Mass, Pulsatile Mass, Splenomegaly, Tenderness Labs: CBC, BMP 09/21/16 06:05 09/21/16 06:05 Problem List - Problems (1) Abnormal LFTs Assessment/Plan: r/o drug toxicity R> serial LFTS, w/u as an outpatient Code(s): R79.89 - OTHER SPECIFIED ABNORMAL FINDINGS OF BLOOD CHEMISTRY (2) Anemia Assessment/Plan: r/o occult gi bleeding R> will need colonoscopy even as outpatient to r/o malignancy stool guaic od x 3 consider hematology consult Code(s): D64.9 - ANEMIA, UNSPECIFIED
[2016-09-21] MEDS: ACETAMINOPHEN 325 MG TABLET (FP) PO PRN (20:30)
[2016-09-21] MEDS: ATORVASTATIN CA 40 MG TABLET (FP) PO SCH (22:30)
[2016-09-21] MEDS: PHENYTOIN NA EXTENDED 100 MG CAPSULE (FP) PO SCH (22:30)
[2016-09-22] MEDS: ACETAMINOPHEN 325 MG TABLET (FP) PO PRN (01:00)
[2016-09-22] MEDS: METRONIDAZOLE 500 MG PREMIXED 100 ML IVPB SCH ×3 (02:10→17:08)
[2016-09-22 06:06] LABS: SERUM IRON 13 ug/dL (38-169); TOTAL IRON BINDING CAPACITY 285 ug/dL (250-450); UIBC 272 ug/dL (111-343)
[2016-09-22] MEDS: metFORMIN HCL 500 MG TABLET (FP) PO SCH ×2 (06:27→17:07)
[2016-09-22] MEDS: INSULIN SLIDING SCALE (NOVOLOG) 1 VIAL SQ SCH ×5 (06:27→21:09)
[2016-09-22 07:34] LABS: BASOPHIL 0.4 % (0-2.0); MCH 22.2 pg (25.7-33.7); MCHC 31.6 g/dl (32.0-35.9); MEAN CELL VOLUME 70.2 fl (80-96); MEAN PLT VOLUME 6.7 fl (7.5-11.1); NEUTROPHILS 67.8 % (42.8-82.8); PLATELET COUNT 151 K/MM3 (134-434); RDW 19.7 % (11.9-15.9); WHITE BLOOD COUNT 19.1 K/mm3 (4.0-10.0)
[2016-09-22 08:29] LABS: ALBUMIN 2.7 g/dl (3.4-5.0); ANION GAP 7 (8-16); BILIRUBIN,TOTAL 0.3 mg/dL (0.2-1.0); CO2 27 mmol/L (21-32); CREATININE 0.7 mg/dL (0.7-1.3); GLUCOSE,RANDOM 107 mg/dL (74-106); SGOT/AST 50 U/L (15-37); SGPT/ALT 79 U/L (12-78); TOT PROT 5.8 g/dl (6.4-8.2)
[2016-09-22 08:30] LABS: ALK PHOS 78 U/L (45-117)
--- NOTE | 2016-09-22 09:05 | PN ---
Progress Note, Physician - Current Medication List Current Medications: Active Medications Acetaminophen (Tylenol -) 650 mg PO Q4H PRN PRN Reason: FEVER OR PAIN Last Admin: 09/22/16 01:00 Dose: 650 mg Albuterol/Ipratropium (Duoneb -) 1 amp NEB Q4H PRN PRN Reason: SHORTNESS OF BREATH Atorvastatin Calcium (Lipitor -) 40 mg PO HS [facility] Last Admin: 09/21/16 22:30 Dose: 40 mg Ceftriaxone Sodium (Rocephin 1gm Ivpb (Pre-Docked)) 1 gm IVPB DAILY [facility] Last Admin: 09/21/16 11:10 Dose: 1 gm Ferrous Sulfate (Feosol -) 325 mg PO TIDCM [facility] Last Admin: 09/21/16 17:04 Dose: 325 mg Metronidazole (Flagyl 500mg Premixed Ivpb -) 100 mls @ 100 mls/hr IVPB Q8H-IV [facility] Last Admin: 09/22/16 02:10 Dose: 100 mls/hr Insulin Aspart (Novolog Vial Sliding Scale -) 1 vial SQ ACHS [facility] PRN Reason: Protocol Last Admin: 09/22/16 06:27 Dose: Not Given Lisinopril (Prinivil) 5 mg PO DAILY [facility] Last Admin: 09/21/16 09:13 Dose: Not Given Metformin HCl (Glucophage -) 500 mg PO BIDI [facility] Last Admin: 09/22/16 06:27 Dose: 500 mg Pantoprazole Sodium (Protonix -) 40 mg PO DAILY [facility] Last Admin: 09/21/16 09:13 Dose: Not Given Phenytoin Sodium (Dilantin -) 300 mg PO DAILY [facility] Last Admin: 09/21/16 22:30 Dose: 300 mg Risperidone (Risperdal -) 0.25 mg PO DAILY [facility] Last Admin: 09/21/16 09:14 Dose: Not Given Sertraline HCl (Zoloft -) 100 mg PO DAILY [facility] Last Admin: 09/21/16 09:14 Dose: Not Given - Objective Vital Signs: Vital Signs Temperature 99.0 F 09/22/16 06:00 Pulse Rate 96 H 09/22/16 06:00 Respiratory Rate 20 09/22/16 06:00 Blood Pressure 100/46 09/22/16 06:00 O2 Sat by Pulse Oximetry (%) 95 09/21/16 21:00 Cardiovascular: Yes: Regular Rate and Rhythm, S1, S2 Respiratory: Yes: CTA Bilaterally Gastrointestinal: Yes: Normal Bowel Sounds, Soft Edema: No Labs: CBC, BMP 09/22/16 05:00 09/22/16 05:00 Problem List - Problems (1) Abnormal LFTs Code(s): R79.89 - OTHER SPECIFIED ABNORMAL FINDINGS OF BLOOD CHEMISTRY (2) Anemia Code(s): D64.9 - ANEMIA, UNSPECIFIED (3) Developmental disability Code(s): F89 - UNSPECIFIED DISORDER OF PSYCHOLOGICAL DEVELOPMENT (4) Fever Code(s): R50.9 - FEVER, UNSPECIFIED (5) Hypertension Code(s): I10 - ESSENTIAL (PRIMARY) HYPERTENSION (6) Leukocytosis Code(s): D72.829 - ELEVATED WHITE BLOOD CELL COUNT, UNSPECIFIED (7) New onset seizure Code(s): R56.9 - UNSPECIFIED CONVULSIONS (8) Tachycardia Code(s): R00.0 - TACHYCARDIA, UNSPECIFIED Assessment/Plan (1) New onset seizure Assessment/Plan: W/U INITIATED NEURO CONSULT APPRECIATED F/U PLANNED BRAIN MRI AED STARTED Code(s): R56.9 - UNSPECIFIED CONVULSIONS (2) Tachycardia Assessment/Plan: MAYBE DUE TO FEVER MONITOR -> MIGHT ADD BB APPRECIATE CARDIO CONSULT Code(s): R00.0 - TACHYCARDIA, UNSPECIFIED (3) Developmental disability Code(s): F89 - UNSPECIFIED DISORDER OF PSYCHOLOGICAL DEVELOPMENT (4) Hypertension Assessment/Plan: MONITOR ON JUANI Code(s): I10 - ESSENTIAL (PRIMARY) HYPERTENSION (5) Fever Assessment/Plan: R/O ASPIRATION BC CXR -> NEW R INFILTRATE ABX ID CONSULT NOTED ST -> CAN EAT WITH MODIFICATIONS Code(s): R50.9 - FEVER, UNSPECIFIED (6) Leukocytosis Assessment/Plan: ABOVE Code(s): D72.829 - ELEVATED WHITE BLOOD CELL COUNT, UNSPECIFIED (7) Anemia Assessment/Plan: HGB 10 -> 9 W/U ORDERED -> F/U GI CONSULT NOTED - HEME Code(s): D64.9 - ANEMIA, UNSPECIFIED (8) Abnormal LFTs Assessment/Plan: FOLLOW LABS US -> F/U GI CONSULT NOTED Code(s): R79.89 - OTHER SPECIFIED ABNORMAL FINDINGS OF BLOOD CHEMISTRY PASTOR VALENZUELA
[2016-09-22] MEDS ORDERED: PT OWN MED DRAWER 7, Y5N ONE (09:34)
[2016-09-22] MEDS: SERTRALINE HCL 50 MG TABLET (FP) PO SCH (10:05)
[2016-09-22] MEDS: FERROUS SO4 325 MG TABLET (FP) PO SCH ×3 (10:05→17:07)
[2016-09-22] MEDS: risperiDONE 0.25 MG TABLET (FP) PO SCH (10:06)
[2016-09-22] MEDS: PHENYTOIN NA EXTENDED 100 MG CAPSULE (FP) PO SCH (10:07)
[2016-09-22] MEDS: LISINOPRIL 5 MG TABLET (FP) PO SCH (10:08)
[2016-09-22] MEDS: PANTOPRAZOLE 40 MG TABLET (FP) PO SCH (10:08)
[2016-09-22] MEDS: cefTRIAXone 1 GM/50 ML BAG (PRE-DOCKED) IVPB SCH (10:08)
--- NOTE | 2016-09-22 10:24 | PN ---
Progress Note, Physician History of Present Illness: PULMONARY ALERT,NAD,-CONGESTION. O2 SAT 93% ON RA - Current Medication List Current Medications: Active Medications Acetaminophen (Tylenol -) 650 mg PO Q4H PRN PRN Reason: FEVER OR PAIN Last Admin: 09/22/16 01:00 Dose: 650 mg Albuterol/Ipratropium (Duoneb -) 1 amp NEB Q4H PRN PRN Reason: SHORTNESS OF BREATH Atorvastatin Calcium (Lipitor -) 40 mg PO HS [facility] Last Admin: 09/21/16 22:30 Dose: 40 mg Ceftriaxone Sodium (Rocephin 1gm Ivpb (Pre-Docked)) 1 gm IVPB DAILY [facility] Last Admin: 09/22/16 10:08 Dose: 1 gm Ferrous Sulfate (Feosol -) 325 mg PO TIDCM [facility] Last Admin: 09/22/16 10:05 Dose: 325 mg Metronidazole (Flagyl 500mg Premixed Ivpb -) 100 mls @ 100 mls/hr IVPB Q8H-IV [facility] Last Admin: 09/22/16 10:07 Dose: 100 mls/hr Insulin Aspart (Novolog Vial Sliding Scale -) 1 vial SQ ACHS [facility] PRN Reason: Protocol Last Admin: 09/22/16 06:27 Dose: Not Given Lisinopril (Prinivil) 5 mg PO DAILY [facility] Last Admin: 09/22/16 10:08 Dose: 5 mg Metformin HCl (Glucophage -) 500 mg PO BIDI [facility] Last Admin: 09/22/16 06:27 Dose: 500 mg Pantoprazole Sodium (Protonix -) 40 mg PO DAILY [facility] Last Admin: 09/22/16 10:08 Dose: 40 mg Phenytoin Sodium (Dilantin -) 300 mg PO DAILY [facility] Last Admin: 09/22/16 10:07 Dose: 300 mg Risperidone (Risperdal -) 0.25 mg PO DAILY [facility] Last Admin: 09/22/16 10:06 Dose: 0.25 mg Sertraline HCl (Zoloft -) 100 mg PO DAILY [facility] Last Admin: 09/22/16 10:05 Dose: 100 mg - Objective Vital Signs: Vital Signs Temperature 99.0 F 09/22/16 06:00 Pulse Rate 96 H 09/22/16 06:00 Respiratory Rate 20 09/22/16 06:00 Blood Pressure 100/46 09/22/16 06:00 O2 Sat by Pulse Oximetry (%) 95 09/21/16 21:00 Constitutional: Yes: Well Nourished, Calm Eyes: Yes: WNL HENT: Yes: WNL Neck: Yes: WNL Cardiovascular: Yes: Regular Rate and Rhythm, S1, S2 Respiratory: Yes: Rales (CRACKLES ON R) Gastrointestinal: Yes: Normal Bowel Sounds, Soft Extremities: Yes: WNL Edema: No Labs: CBC, BMP 09/22/16 05:00 09/22/16 05:00 - ....Imaging Chest X-ray: Report Reviewed, Image Reviewed Problem List - Problems (1) Fever Code(s): R50.9 - FEVER, UNSPECIFIED (2) Leukocytosis Code(s): D72.829 - ELEVATED WHITE BLOOD CELL COUNT, UNSPECIFIED (3) New onset seizure Code(s): R56.9 - UNSPECIFIED CONVULSIONS (4) Tachycardia Code(s): R00.0 - TACHYCARDIA, UNSPECIFIED (5) Developmental disability Code(s): F89 - UNSPECIFIED DISORDER OF PSYCHOLOGICAL DEVELOPMENT (6) Hyperlipidemia Code(s): E78.5 - HYPERLIPIDEMIA, UNSPECIFIED (7) Hypertension Code(s): I10 - ESSENTIAL (PRIMARY) HYPERTENSION (8) Type 2 diabetes mellitus Code(s): E11.9 - TYPE 2 DIABETES MELLITUS WITHOUT COMPLICATIONS (9) Aspiration pneumonia Code(s): J69.0 - PNEUMONITIS DUE TO INHALATION OF FOOD AND VOMIT Assessment/Plan IMP RLL PNEUMONIA LIKELY ASPIRATION SEIZURES AUTISM LACTIC ACIDOSIS HTN DM HLD PLAN IV ANTIBIOTICS NASAL O2 F/U CHEST X-RAY INHALED BRONCHODILATORS TREND LACTATE SEIZURE PRECAUTIONS DR DON Problem List - Problems (1) Fever Code(s): R50.9 - FEVER, UNSPECIFIED (2) Leukocytosis Code(s): D72.829 - ELEVATED WHITE BLOOD CELL COUNT, UNSPECIFIED (3) New onset seizure Code(s): R56.9 - UNSPECIFIED CONVULSIONS (4) Tachycardia Code(s): R00.0 - TACHYCARDIA, UNSPECIFIED (5) Developmental disability Code(s): F89 - UNSPECIFIED DISORDER OF PSYCHOLOGICAL DEVELOPMENT (6) Hyperlipidemia Code(s): E78.5 - HYPERLIPIDEMIA, UNSPECIFIED (7) Hypertension Code(s): I10 - ESSENTIAL (PRIMARY) HYPERTENSION (8) Type 2 diabetes mellitus Code(s): E11.9 - TYPE 2 DIABETES MELLITUS WITHOUT COMPLICATIONS (9) Aspiration pneumonia Code(s): J69.0 - PNEUMONITIS DUE TO INHALATION OF FOOD AND VOMIT
--- NOTE | 2016-09-22 11:22 | PN ---
Progress Note, RN CLINICAL COORDINATOR - Note Progress Note: Pt seen at bedside for follow up to swallow eval (09/21/16) with a recommendation for heart healthy regular solids and thin liquids. Chart review indicates pt is tolerating diet well consuming 100%. Continue current diet of regular heart healthy solids and thin liquid as tolerated. No further intervention needed at this time. Results given to electrical discharge machine operator and to pcp via chart
--- NOTE | 2016-09-22 12:22 | PN ---
Progress Note, Physician - Current Medication List Current Medications: Active Medications Acetaminophen (Tylenol -) 650 mg PO Q4H PRN PRN Reason: FEVER OR PAIN Last Admin: 09/22/16 01:00 Dose: 650 mg Albuterol/Ipratropium (Duoneb -) 1 amp NEB Q4H PRN PRN Reason: SHORTNESS OF BREATH Atorvastatin Calcium (Lipitor -) 40 mg PO HS [facility] Last Admin: 09/21/16 22:30 Dose: 40 mg Ceftriaxone Sodium (Rocephin 1gm Ivpb (Pre-Docked)) 1 gm IVPB DAILY [facility] Last Admin: 09/22/16 10:08 Dose: 1 gm Ferrous Sulfate (Feosol -) 325 mg PO TIDCM [facility] Last Admin: 09/22/16 10:05 Dose: 325 mg Metronidazole (Flagyl 500mg Premixed Ivpb -) 100 mls @ 100 mls/hr IVPB Q8H-IV [facility] Last Admin: 09/22/16 10:07 Dose: 100 mls/hr Insulin Aspart (Novolog Vial Sliding Scale -) 1 vial SQ ACHS [facility] PRN Reason: Protocol Last Admin: 09/22/16 06:27 Dose: Not Given Lisinopril (Prinivil) 5 mg PO DAILY [facility] Last Admin: 09/22/16 10:08 Dose: 5 mg Metformin HCl (Glucophage -) 500 mg PO BIDI [facility] Last Admin: 09/22/16 06:27 Dose: 500 mg Pantoprazole Sodium (Protonix -) 40 mg PO DAILY [facility] Last Admin: 09/22/16 10:08 Dose: 40 mg Phenytoin Sodium (Dilantin -) 300 mg PO DAILY [facility] Last Admin: 09/22/16 10:07 Dose: 300 mg Risperidone (Risperdal -) 0.25 mg PO DAILY [facility] Last Admin: 09/22/16 10:06 Dose: 0.25 mg Sertraline HCl (Zoloft -) 100 mg PO DAILY [facility] Last Admin: 09/22/16 10:05 Dose: 100 mg - Objective Vital Signs: Vital Signs Temperature 99.0 F 09/22/16 06:00 Pulse Rate 89 09/22/16 09:20 Respiratory Rate 20 09/22/16 06:00 Blood Pressure 100/46 09/22/16 06:00 O2 Sat by Pulse Oximetry (%) 99 09/22/16 09:20 Labs: CBC, BMP 09/22/16 05:00 09/22/16 05:00 Assessment/Plan 55 yo autistic male with DM type 2, hyperlipidemia, hypertension, who was admitted with possible seizure and vomiting Patient was febrile, elevated WBC, and right infiltrate on CXR -> concern for aspiration. Cardiology was consulted for sinus tachycardia. Patient's sinus tachycardia is physiologic response to agitation, possible lung infection, etc. No acute cardiac event. Trop neg x3. No CHF. TSH normal RECS: Treat underlying excerbating factors, i.e. infection, agitation (probably due to wanting to eat). Ensure adequate fluid hydration. Would not treat tachycardia with medications (e.g. AV prashant blocking agents) for the sake treating the HR alone. However, if patient should develop hypertension, may start beta mami. Will see prn. Call with questions.
--- NOTE | 2016-09-22 12:33 | CONSULT ---
Consult Referred by:: Dr. Spencer Reason for Consultation:: Anemia;. Leucocytosis - History of Present Illness Chief Complaint: New onset seizure - History Source History Provided By: Medical Record Limitations to Obtaining History: Physical Impairment - Past Medical History HOST COORDINATOR: Yes: Other (AUTISM) Cardio/Vascular: Yes: HTN, Hyperlipdemia Pulmonary: No: COPD Endocrine: Yes: Diabetes Mellitus - Alcohol/Substance Use Hx Alcohol Use: No - Smoking History Smoking history: Never smoked Have you smoked in the past 12 months: No Home Medications - Allergies Allergies/Adverse Reactions: Allergies Allergy/AdvReac Type Severity Reaction Status Date / Time No Known Allergies Allergy Verified 09/20/16 18:07 - Home Medications Home Medications: Ambulatory Orders Atorvastatin Ca [Lipitor] 40 mg PO HS 01/15/14 Metformin HCl [Glucophage -] 500 mg PO BID 01/15/14 Risperidone [Risperdal] 0.25 mg PO DAILY 01/15/14 Lisinopril 5 mg PO DAILY 08/26/16 Sertraline HCl [Zoloft -] 100 mg PO DAILY 08/26/16 Amox-Tr/K Cl [Augmentin 875-125mg Tablet -] 1 tab PO BID@0800,1730 #12 tablet Ferrous Sulfate [Feosol] 325 mg PO TIDCM ud 09/03/16 Pantoprazole Sodium [Protonix -] 40 mg PO DAILY #30 tablet.ec 09/03/16 Clarithromycin 500 mg PO BID 09/20/16 Omeprazole 20 mg PO BID 09/20/16 Physical Exam Vital Signs: Vital Signs Temperature 99.0 F 09/22/16 06:00 Pulse Rate 89 09/22/16 09:20 Respiratory Rate 20 09/22/16 06:00 Blood Pressure 100/46 09/22/16 06:00 O2 Sat by Pulse Oximetry (%) 99 09/22/16 09:20 Constitutional: Yes: Other (somewhat agitated) Eyes: Yes: PERRL HENT: No: Epistaxis, Tonsillar Exudate Neck: Yes: Supple. No: Tenderness Cardiovascular: Yes: Regular Rate and Rhythm Respiratory: Yes: Regular, CTA Bilaterally Gastrointestinal: Yes: Soft Renal/: No: CVA Tenderness - Left Breast(s): No: Gynecomastia Extremities: No: Calf Tenderness Edema: No Integumentary: No: Jaundice Neurological: Yes: Other (new onset seizure) Psychiatric: Yes: Other (autism) Labs: CBC, BMP 09/22/16 05:00 09/22/16 05:00 Imaging - Results X-ray: Report Reviewed, Image Reviewed Assessment/Plan 55 year old with autism presents with new onset of seizures. New RLL infiltrate not present on initial Chest X-ray. Elevated WBC likely secondary to same. Probable aspiration pneumonia on antibiotics per I.D. Normal WBC on admission against underling hematology disorder or MPD. Has hypochromic, microcytic anemia .Will need GI assessment. To check FE++ studies and hemoglobin studies. For celiac screening and if feasible stool guaics. Reverse A/G ratio and to obtain protein studies. To monitor
[2016-09-22] MEDS ORDERED: cefTRIAXone 1 GM/50 ML BAG (PRE-DOCKED) IVPB ONE (14:00)
--- NOTE | 2016-09-22 17:08 | PN ---
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 Per the family as reported to the medical safety director, the gentleman is able to live with his family and perform his self care. Today he is alert and no seizures observed. - Current Medication List Current Medications: Active Medications Acetaminophen (Tylenol -) 650 mg PO Q4H PRN PRN Reason: FEVER OR PAIN Last Admin: 09/22/16 01:00 Dose: 650 mg Albuterol/Ipratropium (Duoneb -) 1 amp NEB Q4H PRN PRN Reason: SHORTNESS OF BREATH Atorvastatin Calcium (Lipitor -) 40 mg PO HS [facility] Last Admin: 09/21/16 22:30 Dose: 40 mg Ceftriaxone Sodium (Rocephin 2gm Ivpb (Pre-Docked)) 2 gm IVPB DAILY [facility] Ferrous Sulfate (Feosol -) 325 mg PO TIDCM [facility] Last Admin: 09/22/16 12:52 Dose: Not Given Metronidazole (Flagyl 500mg Premixed Ivpb -) 100 mls @ 100 mls/hr IVPB Q8H-IV [facility] Last Admin: 09/22/16 10:07 Dose: 100 mls/hr Sodium Chloride (Normal Saline -) 1,000 mls @ 70 mls/hr IV ASDIR [facility] Last Admin: 09/21/16 18:00 Dose: 70 mls/hr Insulin Aspart (Novolog Vial Sliding Scale -) 1 vial SQ ACHS [facility] PRN Reason: Protocol Last Admin: 09/22/16 12:52 Dose: Not Given Lisinopril (Prinivil) 5 mg PO DAILY [facility] Last Admin: 09/22/16 10:08 Dose: 5 mg Metformin HCl (Glucophage -) 500 mg PO BIDI [facility] Last Admin: 09/22/16 06:27 Dose: 500 mg Pantoprazole Sodium (Protonix -) 40 mg PO DAILY [facility] Last Admin: 09/22/16 10:08 Dose: 40 mg Phenytoin Sodium (Dilantin -) 300 mg PO DAILY [facility] Last Admin: 09/22/16 10:07 Dose: 300 mg Risperidone (Risperdal -) 0.25 mg PO DAILY [facility] Last Admin: 09/22/16 10:06 Dose: 0.25 mg Sertraline HCl (Zoloft -) 100 mg PO DAILY [facility] Last Admin: 09/22/16 10:05 Dose: 100 mg - Objective Vital Signs: Vital Signs Temperature 99.4 F 09/22/16 14:55 Pulse Rate 69 09/22/16 14:55 Respiratory Rate 20 09/22/16 14:55 Blood Pressure 118/60 09/22/16 14:55 O2 Sat by Pulse Oximetry (%) 99 09/22/16 09:20 Neurological: Yes: Alert, Aphasia, Cran Nerves II-XII Intact, Dysarthria. No: Oriented, Ataxia, Loss of Sensation, Weakness Labs: CBC, BMP 09/22/16 05:00 09/22/16 05:00 Assessment/Plan possible seizure vs syncope Plan EEG and will add po Dilantin without loading since there was no observed seizure by registered medical transcriptionist Doubt EEG will be done by discharge, however will the patient can be evaluated and treated by Dr Wang with [facility] MRI of the brain to evaluate for possible mass lesion with new onset seizure in the 5th decade.
[2016-09-22] MEDS: ATORVASTATIN CA 40 MG TABLET (FP) PO SCH (21:09)
[2016-09-23] MEDS: METRONIDAZOLE 500 MG PREMIXED 100 ML IVPB SCH ×3 (01:20→16:59)
[2016-09-23] MEDS: ACETAMINOPHEN 325 MG TABLET (FP) PO PRN ×2 (01:20→21:58)
[2016-09-23] MEDS: metFORMIN HCL 500 MG TABLET (FP) PO SCH ×2 (06:22→16:56)
[2016-09-23] MEDS: INSULIN SLIDING SCALE (NOVOLOG) 1 VIAL SQ SCH ×4 (06:22→23:06)
[2016-09-23 06:32] LABS: BASOPHIL 0.3 % (0-2.0); EOSINOPHIL 0.4 % (0-4.5); MCHC 31.7 g/dl (32.0-35.9); MEAN CELL VOLUME 69.5 fl (80-96); MEAN PLT VOLUME 6.7 fl (7.5-11.1); NEUTROPHILS 67.7 % (42.8-82.8); PLATELET COUNT 159 K/MM3 (134-434); RDW 19.4 % (11.9-15.9); WHITE BLOOD COUNT 17.1 K/mm3 (4.0-10.0)
[2016-09-23 06:36] LABS: SERUM IRON 12 ug/dL (38-169); TOTAL IRON BINDING CAPACITY 264 ug/dL (250-450); UIBC 252 ug/dL (111-343)
[2016-09-23 07:04] LABS: FERRITIN 29.57 ng/ml (16.4-293.9)
[2016-09-23 07:14] LABS: ALBUMIN 2.5 g/dl (3.4-5.0); ALK PHOS 76 U/L (45-117); ANION GAP 5 (8-16); BILIRUBIN,TOTAL 0.3 mg/dL (0.2-1.0); CALCIUM 8.1 mg/dL (8.5-10.1); CO2 29 mmol/L (21-32); CREATININE 0.7 mg/dL (0.7-1.3); GLUCOSE,RANDOM 110 mg/dL (74-106); SGOT/AST 42 U/L (15-37); SGPT/ALT 66 U/L (12-78); TOT PROT 5.8 g/dl (6.4-8.2)
[2016-09-23] MEDS: cefTRIAXone 2 GM/100 ML BAG (PRE-DOCKED) IVPB SCH (09:19)
[2016-09-23] MEDS: PANTOPRAZOLE 40 MG TABLET (FP) PO SCH (09:20)
[2016-09-23] MEDS: LISINOPRIL 5 MG TABLET (FP) PO SCH (09:20)
[2016-09-23] MEDS: SERTRALINE HCL 50 MG TABLET (FP) PO SCH (09:20)
[2016-09-23] MEDS: FERROUS SO4 325 MG TABLET (FP) PO SCH ×3 (09:20→16:56)
[2016-09-23] MEDS: risperiDONE 0.25 MG TABLET (FP) PO SCH (09:21)
[2016-09-23] MEDS: PHENYTOIN NA EXTENDED 100 MG CAPSULE (FP) PO SCH (09:21)
--- NOTE | 2016-09-23 11:28 | PN ---
Progress Note, Physician - Current Medication List Current Medications: Active Medications Acetaminophen (Tylenol -) 650 mg PO Q4H PRN PRN Reason: FEVER OR PAIN Last Admin: 09/23/16 01:20 Dose: 650 mg Albuterol/Ipratropium (Duoneb -) 1 amp NEB Q4H PRN PRN Reason: SHORTNESS OF BREATH Atorvastatin Calcium (Lipitor -) 40 mg PO HS [facility] Last Admin: 09/22/16 21:09 Dose: 40 mg Ceftriaxone Sodium (Rocephin 2gm Ivpb (Pre-Docked)) 2 gm IVPB DAILY [facility] Last Admin: 09/23/16 09:19 Dose: 2 gm Ferrous Sulfate (Feosol -) 325 mg PO TIDCM [facility] Last Admin: 09/23/16 09:20 Dose: 325 mg Metronidazole (Flagyl 500mg Premixed Ivpb -) 100 mls @ 100 mls/hr IVPB Q8H-IV [facility] Last Admin: 09/23/16 09:20 Dose: 100 mls/hr Sodium Chloride (Normal Saline -) 1,000 mls @ 70 mls/hr IV ASDIR [facility] Last Admin: 09/21/16 18:00 Dose: 70 mls/hr Insulin Aspart (Novolog Vial Sliding Scale -) 1 vial SQ ACHS [facility] PRN Reason: Protocol Last Admin: 09/23/16 06:22 Dose: Not Given Lisinopril (Prinivil) 5 mg PO DAILY [facility] Last Admin: 09/23/16 09:20 Dose: 5 mg Metformin HCl (Glucophage -) 500 mg PO BIDI [facility] Last Admin: 09/23/16 06:22 Dose: 500 mg Pantoprazole Sodium (Protonix -) 40 mg PO DAILY [facility] Last Admin: 09/23/16 09:20 Dose: 40 mg Phenytoin Sodium (Dilantin -) 300 mg PO DAILY [facility] Last Admin: 09/23/16 09:21 Dose: 300 mg Risperidone (Risperdal -) 0.25 mg PO DAILY [facility] Last Admin: 09/23/16 09:21 Dose: 0.25 mg Sertraline HCl (Zoloft -) 100 mg PO DAILY [facility] Last Admin: 09/23/16 09:20 Dose: 100 mg - Objective Vital Signs: Vital Signs Temperature 98.8 F 09/23/16 10:00 Pulse Rate 116 H 09/23/16 10:00 Respiratory Rate 18 01/08/17 10:00 Blood Pressure 124/80 09/23/16 10:00 O2 Sat by Pulse Oximetry (%) 99 09/22/16 10:00 Cardiovascular: Yes: Regular Rate and Rhythm, S1, S2 Respiratory: Yes: Rhonchi Gastrointestinal: Yes: Normal Bowel Sounds, Soft Edema: No Labs: CBC, BMP 09/23/16 05:50 09/23/16 05:50 Problem List - Problems (1) Abnormal LFTs Code(s): R79.89 - OTHER SPECIFIED ABNORMAL FINDINGS OF BLOOD CHEMISTRY (2) Anemia Code(s): D64.9 - ANEMIA, UNSPECIFIED (3) Developmental disability Code(s): F89 - UNSPECIFIED DISORDER OF PSYCHOLOGICAL DEVELOPMENT (4) Fever Code(s): R50.9 - FEVER, UNSPECIFIED (5) Hypertension Code(s): I10 - ESSENTIAL (PRIMARY) HYPERTENSION (6) Leukocytosis Code(s): D72.829 - ELEVATED WHITE BLOOD CELL COUNT, UNSPECIFIED (7) New onset seizure Code(s): R56.9 - UNSPECIFIED CONVULSIONS (8) Tachycardia Code(s): R00.0 - TACHYCARDIA, UNSPECIFIED Assessment/Plan (1) New onset seizure Assessment/Plan: NEURO CONSULT APPRECIATED F/U PLANNED BRAIN MRI AED STARTED Code(s): R56.9 - UNSPECIFIED CONVULSIONS (2) Tachycardia Assessment/Plan: MAYBE DUE TO FEVER MONITOR -> MIGHT ADD BB APPRECIATE CARDIO CONSULT -> Would not treat tachycardia with medications (e.g. AV prashant blocking agents) for the sake treating the HR alone. However, if patient should develop hypertension, may start beta mami. Code(s): R00.0 - TACHYCARDIA, UNSPECIFIED (3) Developmental disability Code(s): F89 - UNSPECIFIED DISORDER OF PSYCHOLOGICAL DEVELOPMENT (4) Hypertension Assessment/Plan: MONITOR ON JUANI Code(s): I10 - ESSENTIAL (PRIMARY) HYPERTENSION (5) Fever Assessment/Plan: R/O ASPIRATION CXR -> NEW R INFILTRATE ABX ID CONSULT NOTED ST -> CAN EAT WITH MODIFICATIONS Code(s): R50.9 - FEVER, UNSPECIFIED (6) Leukocytosis Assessment/Plan: ABOVE Code(s): D72.829 - ELEVATED WHITE BLOOD CELL COUNT, UNSPECIFIED (7) Anemia Assessment/Plan: HGB 9 W/U ORDERED -> F/U GI & HEME CONSULTS NOTED Code(s): D64.9 - ANEMIA, UNSPECIFIED (8) Abnormal LFTs Assessment/Plan: FOLLOW LABS US -> 5mm GALLBLADDER POLYP GI CONSULT NOTED Code(s): R79.89 - OTHER SPECIFIED ABNORMAL FINDINGS OF BLOOD CHEMISTRY PASTOR VALENZUELA
--- NOTE | 2016-09-23 12:33 | PN ---
Progress Note, Physician History of Present Illness: pulmonary alert,oob-chair,comfortable. - Current Medication List Current Medications: Active Medications Acetaminophen (Tylenol -) 650 mg PO Q4H PRN PRN Reason: FEVER OR PAIN Last Admin: 09/23/16 01:20 Dose: 650 mg Albuterol/Ipratropium (Duoneb -) 1 amp NEB Q4H PRN PRN Reason: SHORTNESS OF BREATH Atorvastatin Calcium (Lipitor -) 40 mg PO HS [facility] Last Admin: 09/22/16 21:09 Dose: 40 mg Ceftriaxone Sodium (Rocephin 2gm Ivpb (Pre-Docked)) 2 gm IVPB DAILY [facility] Last Admin: 09/23/16 09:19 Dose: 2 gm Ferrous Sulfate (Feosol -) 325 mg PO TIDCM [facility] Last Admin: 09/23/16 11:48 Dose: 325 mg Metronidazole (Flagyl 500mg Premixed Ivpb -) 100 mls @ 100 mls/hr IVPB Q8H-IV [facility] Last Admin: 09/23/16 09:20 Dose: 100 mls/hr Sodium Chloride (Normal Saline -) 1,000 mls @ 70 mls/hr IV ASDIR [facility] Last Admin: 09/21/16 18:00 Dose: 70 mls/hr Insulin Aspart (Novolog Vial Sliding Scale -) 1 vial SQ ACHS [facility] PRN Reason: Protocol Last Admin: 09/23/16 11:46 Dose: Not Given Lisinopril (Prinivil) 5 mg PO DAILY [facility] Last Admin: 09/23/16 09:20 Dose: 5 mg Metformin HCl (Glucophage -) 500 mg PO BIDI [facility] Last Admin: 09/23/16 06:22 Dose: 500 mg Pantoprazole Sodium (Protonix -) 40 mg PO DAILY [facility] Last Admin: 09/23/16 09:20 Dose: 40 mg Phenytoin Sodium (Dilantin -) 300 mg PO DAILY [facility] Last Admin: 09/23/16 09:21 Dose: 300 mg Risperidone (Risperdal -) 0.25 mg PO DAILY [facility] Last Admin: 09/23/16 09:21 Dose: 0.25 mg Sertraline HCl (Zoloft -) 100 mg PO DAILY [facility] Last Admin: 09/23/16 09:20 Dose: 100 mg - Objective Vital Signs: Vital Signs Temperature 98.8 F 09/23/16 10:00 Pulse Rate 109 H 09/23/16 12:03 Respiratory Rate 18 09/23/16 10:00 Blood Pressure 124/80 09/23/16 10:00 O2 Sat by Pulse Oximetry (%) 99 09/23/16 12:03 Constitutional: Yes: Well Nourished, Calm Eyes: Yes: WNL HENT: Yes: WNL Neck: Yes: WNL Cardiovascular: Yes: Regular Rate and Rhythm, S1, S2 Respiratory: Yes: Diminished Gastrointestinal: Yes: WNL Extremities: Yes: WNL Edema: No Labs: CBC, BMP 09/23/16 05:50 09/23/16 05:50 Problem List - Problems (1) Fever Code(s): R50.9 - FEVER, UNSPECIFIED (2) Leukocytosis Code(s): D72.829 - ELEVATED WHITE BLOOD CELL COUNT, UNSPECIFIED (3) New onset seizure Code(s): R56.9 - UNSPECIFIED CONVULSIONS (4) Tachycardia Code(s): R00.0 - TACHYCARDIA, UNSPECIFIED (5) Developmental disability Code(s): F89 - UNSPECIFIED DISORDER OF PSYCHOLOGICAL DEVELOPMENT (6) Hyperlipidemia Code(s): E78.5 - HYPERLIPIDEMIA, UNSPECIFIED (7) Hypertension Code(s): I10 - ESSENTIAL (PRIMARY) HYPERTENSION (8) Type 2 diabetes mellitus Code(s): E11.9 - TYPE 2 DIABETES MELLITUS WITHOUT COMPLICATIONS (9) Aspiration pneumonia Code(s): J69.0 - PNEUMONITIS DUE TO INHALATION OF FOOD AND VOMIT Assessment/Plan IMP RLL PNEUMONIA LIKELY ASPIRATION SEIZURES AUTISM LACTIC ACIDOSIS HTN DM HLD PLAN IV ANTIBIOTICS NASAL O2 F/U CHEST X-RAY am INHALED BRONCHODILATORS TREND LACTATE SEIZURE PRECAUTIONS DR DON Problem List - Problems (1) Fever Code(s): R50.9 - FEVER, UNSPECIFIED (2) Leukocytosis Code(s): D72.829 - ELEVATED WHITE BLOOD CELL COUNT, UNSPECIFIED (3) New onset seizure Code(s): R56.9 - UNSPECIFIED CONVULSIONS (4) Tachycardia Code(s): R00.0 - TACHYCARDIA, UNSPECIFIED (5) Developmental disability Code(s): F89 - UNSPECIFIED DISORDER OF PSYCHOLOGICAL DEVELOPMENT (6) Hyperlipidemia Code(s): E78.5 - HYPERLIPIDEMIA, UNSPECIFIED (7) Hypertension Code(s): I10 - ESSENTIAL (PRIMARY) HYPERTENSION (8) Type 2 diabetes mellitus Code(s): E11.9 - TYPE 2 DIABETES MELLITUS WITHOUT COMPLICATIONS (9) Aspiration pneumonia Code(s): J69.0 - PNEUMONITIS DUE TO INHALATION OF FOOD AND VOMIT
--- NOTE | 2016-09-23 15:33 | PN ---
GI Progress Note Subjective: spoke to her her sister and was informed that the patient had EGD and colonoscopy done at [facility]. He was started with H.pylori medication that he had to complete - Objective Vital Signs: Vital Signs Temperature 98.8 F 09/23/16 10:00 Pulse Rate 109 H 09/23/16 12:03 Respiratory Rate 18 09/23/16 10:00 Blood Pressure 124/80 09/23/16 10:00 O2 Sat by Pulse Oximetry (%) 99 09/23/16 12:03 Constitutional: Well Nourished Eyes: Yes: Conjunctiva Clear HENT: Yes: Atraumatic Neck: Yes: Trachea Midline Cardiovascular: Yes: Regular Rate and Rhythm Respiratory: Yes: CTA Bilaterally ...Palpate: Yes: Soft. No: Firm/Rigid, Guarding, Hepatomegaly, Mass, Pulsatile Mass, Splenomegaly, Tenderness Labs: CBC, BMP 09/23/16 05:50 09/23/16 05:50 Problem List - Problems (1) Abnormal LFTs Assessment/Plan: --normalized Code(s): R79.89 - OTHER SPECIFIED ABNORMAL FINDINGS OF BLOOD CHEMISTRY (2) Anemia Assessment/Plan: EGD and colonoscopy done at [facility] was reported to have no bleeding lesion according to his sister anemia w/u as per hematology stool guaiac Code(s): D64.9 - ANEMIA, UNSPECIFIED
[2016-09-23] MEDS: SODIUM CHLORIDE 1,000 ML IV SCH (16:58)
--- NOTE | 2016-09-23 21:49 | HOSP ---
Subjective - Review of Symptoms Subjective: The pt is lying in bed comfortably, on ventimask, requesting more popcorn. ROS is not possible, pt is nonverbal. Physical Examination Vital Signs: Vital Signs Temperature 98.9 F 09/23/16 18:00 Pulse Rate 113 H 09/23/16 18:00 Respiratory Rate 18 09/23/16 18:00 Blood Pressure 131/72 09/23/16 18:00 O2 Sat by Pulse Oximetry (%) 99 09/23/16 12:03 Constitutional: Yes: Well Nourished, No Distress Eyes: Yes: WNL, Conjunctiva Clear, EOM Intact HENT: Yes: WNL, Atraumatic, Normocephalic Neck: Yes: Supple, Trachea Midline Cardiovascular: Yes: Tachycardia, S2. No: Gallop, Murmur Respiratory: Yes: Regular, CTA Bilaterally. No: Accessory Muscle Use, Cough Gastrointestinal: Yes: Normal Bowel Sounds, Soft, Distention Labs: CBC, BMP 09/23/16 05:50 09/23/16 05:50 Hospitalist Encounter Assessment: 55 year old with autism presents with new onset of seizures. New RLL infiltrate probable aspiration pneumonia on antibiotics per I.D. Outcome: We were called to assess the pt. The nurse check his vitals signs around 8 PM. He was found to have BP 126/70, HR 127, rectal Temp. 103.3 and Oxygen Sat. around 80 %. She called Dr. Spencer. The pt's Oxygen Sat. increased to 97-98 on 50 % ventimask. Sepsis due to aspiration pneumonia: We ordered repeat lactic acid, 500 cc NS, cultures are already done. If more episodes of desaturation we recommend to give him Albuterol neb and repeat ABGs. We also ordered repeat Chest X ray to r/o new changes to his existing RLL infiltrate. Primary Physician Notified: Ok Savage Visit type - Emergency Visit Emergency Visit: Yes ED Registration Date: 09/20/16 Care time: The patient presented to the Emergency Department on the above date and was hospitalized for further evaluation of their emergent condition. - New Patient This patient is new to me today: Yes Date on this admission: 09/23/16 - Critical Care Critical Care patient: No
[2016-09-23] MEDS: ATORVASTATIN CA 40 MG TABLET (FP) PO SCH (21:58)
[2016-09-23] MEDS ORDERED: SODIUM CHLORIDE 500 ML IV STA ×2 (22:28→22:32)
[2016-09-24] MEDS: METRONIDAZOLE 500 MG PREMIXED 100 ML IVPB SCH ×3 (05:26→17:28)
[2016-09-24] MEDS: SODIUM CHLORIDE 1,000 ML IV SCH ×2 (05:51→17:14)
[2016-09-24] MEDS: INSULIN SLIDING SCALE (NOVOLOG) 1 VIAL SQ SCH ×4 (06:22→21:46)
[2016-09-24] MEDS: metFORMIN HCL 500 MG TABLET (FP) PO SCH ×2 (06:23→17:24)
[2016-09-24 06:50] LABS: BASOPHIL 0.2 % (0-2.0); EOSINOPHIL 0.7 % (0-4.5); MCH 21.4 pg (25.7-33.7); MCHC 30.5 g/dl (32.0-35.9); MEAN CELL VOLUME 70.4 fl (80-96); MEAN PLT VOLUME 7.1 fl (7.5-11.1); NEUTROPHILS 58.9 % (42.8-82.8); PLATELET COUNT 163 K/MM3 (134-434); RDW 19.8 % (11.9-15.9)
[2016-09-24 07:50] LABS: ALBUMIN 2.4 g/dl (3.4-5.0); ALK PHOS 70 U/L (45-117); ANION GAP 7 (8-16); BILIRUBIN,TOTAL 0.2 mg/dL (0.2-1.0); CO2 28 mmol/L (21-32); CREATININE 0.6 mg/dL (0.7-1.3); GLUCOSE,RANDOM 118 mg/dL (74-106); SGOT/AST 37 U/L (15-37); SGPT/ALT 57 U/L (12-78); TOT PROT 5.4 g/dl (6.4-8.2)
[2016-09-24 10:16] LABS: ANISOCYTOSIS 1+; HYPOCHROMIA 2+; MICROCYTOSIS 1+; OVALOCYTES 2+; POIKILOCYTOSIS 2+; POLYCHROMASIA 1+; TARGET CELLS 1+
[2016-09-24 10:18] LABS: FRAGMENTED CELL 1+
[2016-09-24] MEDS: FERROUS SO4 325 MG TABLET (FP) PO SCH ×3 (11:39→17:27)
[2016-09-24] MEDS: SERTRALINE HCL 50 MG TABLET (FP) PO SCH (11:45)
[2016-09-24] MEDS: PHENYTOIN NA EXTENDED 100 MG CAPSULE (FP) PO SCH (11:45)
[2016-09-24] MEDS: LISINOPRIL 5 MG TABLET (FP) PO SCH (11:46)
[2016-09-24] MEDS: PANTOPRAZOLE 40 MG TABLET (FP) PO SCH (11:46)
[2016-09-24] MEDS: risperiDONE 0.25 MG TABLET (FP) PO SCH (11:46)
[2016-09-24] MEDS: cefTRIAXone 2 GM/100 ML BAG (PRE-DOCKED) IVPB SCH (11:47)
--- NOTE | 2016-09-24 11:53 | PN ---
Progress Note, DRIVER/REFUSE COLLECTOR - Note Progress Note: Selected Entries 09/22/16 09/22/16 09/23/16 12:30 18:00 18:00 Breakfast 100% Lunch 100% Supper 100% 100% Persistent infiltrate on CXR noted. Aspiration secondary to seizure. Pt alert, limited single word production. Slow self feeding of cookie. Limited mastication. Swallow fairly brisk. Overtly tolerating water via straw. Not overtly aspirating- no cough, congestion, vocal changes. Rec: Soft regular, finger foods. Thin liquid. Silent aspiration can not be r/o at bedside.
--- NOTE | 2016-09-24 11:55 | PN ---
Progress Note (short form) - Note Progress Note: resting comfortably had an episode of fever with tachycardia last pm now resolved cultures sent and cxray repeated- stable no diarrhea Vital Signs Period Temp Pulse Resp BP Sys/Soliz Pulse Ox Last 24 Hr 98.5 F-103.3 F 92-127 18-20 118-131/70-79 92-98 no rash no phlebitis cor-rrr lungs crackles right base abd soft,nt ext no edema CBC, BMP 09/24/16 06:05 09/24/16 06:05 Microbiology 09/21/16 09:40 Blood - Peripheral Venous Blood Culture - Preliminary NO GROWTH OBTAINED AFTER 72 HOURS, INCUBATION TO CONTINUE FOR 2 DAYS. 09/21/16 09:40 Blood - Peripheral Venous Blood Culture - Preliminary NO GROWTH OBTAINED AFTER 72 HOURS, INCUBATION TO CONTINUE FOR 2 DAYS. 09/20/16 20:09 Urine - Urine Clean Catch Urine Culture - Final NO GROWTH OBTAINED Current Medications Acetaminophen (Tylenol -) 650 mg PO Q4H PRN PRN Reason: FEVER OR PAIN Last Admin: 09/23/16 21:58 Dose: 650 mg Albuterol/Ipratropium (Duoneb -) 1 amp NEB Q4H PRN PRN Reason: SHORTNESS OF BREATH Atorvastatin Calcium (Lipitor -) 40 mg PO HS [facility] Last Admin: 09/23/16 21:58 Dose: 40 mg Ceftriaxone Sodium (Rocephin 2gm Ivpb (Pre-Docked)) 2 gm IVPB DAILY [facility] Last Admin: 09/24/16 11:47 Dose: 2 gm Ferrous Sulfate (Feosol -) 325 mg PO TIDCM [facility] Last Admin: 09/24/16 11:46 Dose: 325 mg Metronidazole (Flagyl 500mg Premixed Ivpb -) 100 mls @ 100 mls/hr IVPB Q8H-IV [facility] Last Admin: 09/24/16 11:46 Dose: 100 mls/hr Sodium Chloride (Normal Saline -) 1,000 mls @ 70 mls/hr IV ASDIR [facility] Last Admin: 09/24/16 05:51 Dose: 70 mls/hr Insulin Aspart (Novolog Vial Sliding Scale -) 1 vial SQ ACHS [facility] PRN Reason: Protocol Last Admin: 09/24/16 12:03 Dose: Not Given Lisinopril (Prinivil) 5 mg PO DAILY [facility] Last Admin: 09/24/16 11:46 Dose: 5 mg Metformin HCl (Glucophage -) 500 mg PO BIDI [facility] Last Admin: 09/24/16 06:23 Dose: 500 mg Pantoprazole Sodium (Protonix -) 40 mg PO DAILY [facility] Last Admin: 09/24/16 11:46 Dose: 40 mg Phenytoin Sodium (Dilantin -) 300 mg PO DAILY [facility] Last Admin: 09/24/16 11:45 Dose: 300 mg Risperidone (Risperdal -) 0.25 mg PO DAILY [facility] Last Admin: 09/24/16 11:46 Dose: 0.25 mg Sertraline HCl (Zoloft -) 100 mg PO DAILY [facility] Last Admin: 09/24/16 11:45 Dose: 100 mg a/p fever last night- f/u cultures aspiration pneumonia-continue rocephin/flagyl cxray is stable seizures-f/u MRI d/w Dr Sy Problem List - Problems (1) Aspiration pneumonia Code(s): J69.0 - PNEUMONITIS DUE TO INHALATION OF FOOD AND VOMIT (2) New onset seizure Code(s): R56.9 - UNSPECIFIED CONVULSIONS
--- NOTE | 2016-09-24 12:03 | PN ---
Progress Note, Physician Chief Complaint: spike temp yesterday went down for MRI and EEG - Current Medication List Current Medications: Active Medications Acetaminophen (Tylenol -) 650 mg PO Q4H PRN PRN Reason: FEVER OR PAIN Last Admin: 09/23/16 21:58 Dose: 650 mg Albuterol/Ipratropium (Duoneb -) 1 amp NEB Q4H PRN PRN Reason: SHORTNESS OF BREATH Atorvastatin Calcium (Lipitor -) 40 mg PO HS [facility] Last Admin: 09/23/16 21:58 Dose: 40 mg Ceftriaxone Sodium (Rocephin 2gm Ivpb (Pre-Docked)) 2 gm IVPB DAILY [facility] Last Admin: 09/24/16 11:47 Dose: 2 gm Ferrous Sulfate (Feosol -) 325 mg PO TIDCM [facility] Last Admin: 09/24/16 11:46 Dose: 325 mg Metronidazole (Flagyl 500mg Premixed Ivpb -) 100 mls @ 100 mls/hr IVPB Q8H-IV [facility] Last Admin: 09/24/16 11:46 Dose: 100 mls/hr Sodium Chloride (Normal Saline -) 1,000 mls @ 70 mls/hr IV ASDIR [facility] Last Admin: 09/24/16 05:51 Dose: 70 mls/hr Insulin Aspart (Novolog Vial Sliding Scale -) 1 vial SQ ACHS [facility] PRN Reason: Protocol Last Admin: 09/24/16 06:22 Dose: Not Given Lisinopril (Prinivil) 5 mg PO DAILY [facility] Last Admin: 09/24/16 11:46 Dose: 5 mg Metformin HCl (Glucophage -) 500 mg PO BIDI [facility] Last Admin: 09/24/16 06:23 Dose: 500 mg Pantoprazole Sodium (Protonix -) 40 mg PO DAILY [facility] Last Admin: 09/24/16 11:46 Dose: 40 mg Phenytoin Sodium (Dilantin -) 300 mg PO DAILY [facility] Last Admin: 09/24/16 11:45 Dose: 300 mg Risperidone (Risperdal -) 0.25 mg PO DAILY [facility] Last Admin: 09/24/16 11:46 Dose: 0.25 mg Sertraline HCl (Zoloft -) 100 mg PO DAILY [facility] Last Admin: 09/24/16 11:45 Dose: 100 mg - Objective Vital Signs: Vital Signs Temperature 98.5 F 09/24/16 10:00 Pulse Rate 100 H 09/24/16 10:00 Respiratory Rate 18 09/24/16 10:00 Blood Pressure 118/76 09/24/16 10:00 O2 Sat by Pulse Oximetry (%) 92 L 09/24/16 09:00 Constitutional: Yes: Calm Neck: Yes: Trachea Midline Cardiovascular: Yes: Regular Rate and Rhythm, S1, S2 Respiratory: Yes: Diminished (on rightg side) Gastrointestinal: Yes: Soft Edema: No Neurological: Yes: Alert Labs: CBC, BMP 09/24/16 06:05 09/24/16 06:05 Problem List - Problems (1) Aspiration pneumonia Assessment/Plan: MBS abx Code(s): J69.0 - PNEUMONITIS DUE TO INHALATION OF FOOD AND VOMIT (2) Fever Assessment/Plan: blod cultures ID on board flagyl and rocephin Code(s): R50.9 - FEVER, UNSPECIFIED (3) New onset seizure Assessment/Plan: eeg and MRI Code(s): R56.9 - UNSPECIFIED CONVULSIONS (4) Hyperlipidemia Assessment/Plan: statin Code(s): E78.5 - HYPERLIPIDEMIA, UNSPECIFIED (5) Hypertension Assessment/Plan: mionitior Code(s): I10 - ESSENTIAL (PRIMARY) HYPERTENSION
--- NOTE | 2016-09-24 12:51 | PN ---
Progress Note, Physician History of Present Illness: PULMONARY ALERT,NAD,-SOB,-COUGH. - Current Medication List Current Medications: Active Medications Acetaminophen (Tylenol -) 650 mg PO Q4H PRN PRN Reason: FEVER OR PAIN Last Admin: 09/23/16 21:58 Dose: 650 mg Albuterol/Ipratropium (Duoneb -) 1 amp NEB Q4H PRN PRN Reason: SHORTNESS OF BREATH Atorvastatin Calcium (Lipitor -) 40 mg PO HS [facility] Last Admin: 09/23/16 21:58 Dose: 40 mg Ceftriaxone Sodium (Rocephin 2gm Ivpb (Pre-Docked)) 2 gm IVPB DAILY [facility] Last Admin: 09/24/16 11:47 Dose: 2 gm Ferrous Sulfate (Feosol -) 325 mg PO TIDCM [facility] Last Admin: 09/24/16 11:46 Dose: 325 mg Metronidazole (Flagyl 500mg Premixed Ivpb -) 100 mls @ 100 mls/hr IVPB Q8H-IV [facility] Last Admin: 09/24/16 11:46 Dose: 100 mls/hr Sodium Chloride (Normal Saline -) 1,000 mls @ 70 mls/hr IV ASDIR [facility] Last Admin: 09/24/16 05:51 Dose: 70 mls/hr Insulin Aspart (Novolog Vial Sliding Scale -) 1 vial SQ ACHS [facility] PRN Reason: Protocol Last Admin: 09/24/16 12:03 Dose: Not Given Lisinopril (Prinivil) 5 mg PO DAILY [facility] Last Admin: 09/24/16 11:46 Dose: 5 mg Metformin HCl (Glucophage -) 500 mg PO BIDI [facility] Last Admin: 09/24/16 06:23 Dose: 500 mg Pantoprazole Sodium (Protonix -) 40 mg PO DAILY [facility] Last Admin: 09/24/16 11:46 Dose: 40 mg Phenytoin Sodium (Dilantin -) 300 mg PO DAILY [facility] Last Admin: 09/24/16 11:45 Dose: 300 mg Risperidone (Risperdal -) 0.25 mg PO DAILY [facility] Last Admin: 09/24/16 11:46 Dose: 0.25 mg Sertraline HCl (Zoloft -) 100 mg PO DAILY [facility] Last Admin: 09/24/16 11:45 Dose: 100 mg - Objective Vital Signs: Vital Signs Temperature 98.5 F 09/24/16 10:00 Pulse Rate 100 H 09/24/16 10:00 Respiratory Rate 18 09/24/16 10:00 Blood Pressure 118/76 09/24/16 10:00 O2 Sat by Pulse Oximetry (%) 92 L 09/24/16 09:00 Constitutional: Yes: Well Nourished, Calm Eyes: Yes: WNL HENT: Yes: WNL Neck: Yes: WNL Cardiovascular: Yes: Regular Rate and Rhythm, S1, S2 Respiratory: Yes: Diminished, Rales (CRACKLES ON R) Gastrointestinal: Yes: WNL Extremities: Yes: WNL Edema: No Labs: CBC, BMP 09/24/16 06:05 09/24/16 06:05 - ....Imaging Chest X-ray: Report Reviewed, Image Reviewed (NO CHANGE R LUNG CONSOLIDATION) Problem List - Problems (1) Fever Code(s): R50.9 - FEVER, UNSPECIFIED (2) Leukocytosis Code(s): D72.829 - ELEVATED WHITE BLOOD CELL COUNT, UNSPECIFIED (3) New onset seizure Code(s): R56.9 - UNSPECIFIED CONVULSIONS (4) Tachycardia Code(s): R00.0 - TACHYCARDIA, UNSPECIFIED (5) Developmental disability Code(s): F89 - UNSPECIFIED DISORDER OF PSYCHOLOGICAL DEVELOPMENT (6) Hyperlipidemia Code(s): E78.5 - HYPERLIPIDEMIA, UNSPECIFIED (7) Hypertension Code(s): I10 - ESSENTIAL (PRIMARY) HYPERTENSION (8) Type 2 diabetes mellitus Code(s): E11.9 - TYPE 2 DIABETES MELLITUS WITHOUT COMPLICATIONS (9) Aspiration pneumonia Code(s): J69.0 - PNEUMONITIS DUE TO INHALATION OF FOOD AND VOMIT Assessment/Plan IMP RLL PNEUMONIA LIKELY ASPIRATION SEIZURES AUTISM LACTIC ACIDOSIS HTN DM HLD PLAN IV ANTIBIOTICS NASAL O2 F/U CHEST X-RAYS INHALED BRONCHODILATORS SEIZURE PRECAUTIONS DR DON Problem List - Problems (1) Fever Code(s): R50.9 - FEVER, UNSPECIFIED (2) Leukocytosis Code(s): D72.829 - ELEVATED WHITE BLOOD CELL COUNT, UNSPECIFIED (3) New onset seizure Code(s): R56.9 - UNSPECIFIED CONVULSIONS (4) Tachycardia Code(s): R00.0 - TACHYCARDIA, UNSPECIFIED (5) Developmental disability Code(s): F89 - UNSPECIFIED DISORDER OF PSYCHOLOGICAL DEVELOPMENT (6) Hyperlipidemia Code(s): E78.5 - HYPERLIPIDEMIA, UNSPECIFIED (7) Hypertension Code(s): I10 - ESSENTIAL (PRIMARY) HYPERTENSION (8) Type 2 diabetes mellitus Code(s): E11.9 - TYPE 2 DIABETES MELLITUS WITHOUT COMPLICATIONS (9) Aspiration pneumonia Code(s): J69.0 - PNEUMONITIS DUE TO INHALATION OF FOOD AND VOMIT
--- NOTE | 2016-09-24 13:49 | CONSULT ---
Consult - text type - Consultation Consultation Note: 55 yo autistic male with type 2 diabetes mellitus, hyperlipidemia, hypertension here via EMS for evaluation of a possible seizure while he was on the bus. By report, business analyst project manager noted the patient had a seizure for 2-3 minuites, vomited and defecated. EMS noted him to be post-ictal -> blood pressure was 110/70 en route to the ED. We have been asked to evaluate him for anemia - History Source History Provided By: Medical Record - Past Medical History [employer] PROFESSION[employer]: Yes: Other (AUTISM) Cardio/Vascular: Yes: HTN, Hyperlipdemia Pulmonary: No: COPD Endocrine: Yes: Diabetes Mellitus - Smoking History Smoking history: Never smoked Home Medications - Allergies Allergies/Adverse Reactions: Allergies Allergy/AdvReac Type Severity Reaction Status Date / Time No Known Allergies Allergy Verified 09/20/16 18:07 - Home Medications Home Medications: Ambulatory Orders Atorvastatin Ca [Lipitor] 40 mg PO HS 01/15/14 Metformin HCl [Glucophage -] 500 mg PO BID 01/15/14 Risperidone [Risperdal] 0.25 mg PO DAILY 01/15/14 Lisinopril 5 mg PO DAILY 08/26/16 Sertraline HCl [Zoloft -] 100 mg PO DAILY 08/26/16 Amox-Tr/K Cl [Augmentin 875-125mg Tablet -] 1 tab PO BID@0800,1730 #12 tablet Ferrous Sulfate [Feosol] 325 mg PO TIDCM [facility] 09/03/16 Pantoprazole Sodium [Protonix -] 40 mg PO DAILY #30 tablet.ec 09/03/16 Clarithromycin 500 mg PO BID 09/20/16 Omeprazole 20 mg PO BID 09/20/16 Current Medications Acetaminophen (Tylenol -) 650 mg PO Q4H PRN PRN Reason: FEVER OR PAIN Last Admin: 09/23/16 21:58 Dose: 650 mg Albuterol/Ipratropium (Duoneb -) 1 amp NEB Q4H PRN PRN Reason: SHORTNESS OF BREATH Atorvastatin Calcium (Lipitor -) 40 mg PO HS [facility] Last Admin: 09/23/16 21:58 Dose: 40 mg Ceftriaxone Sodium (Rocephin 2gm Ivpb (Pre-Docked)) 2 gm IVPB DAILY [facility] Last Admin: 09/24/16 11:47 Dose: 2 gm Ferrous Sulfate (Feosol -) 325 mg PO TIDCM [facility] Last Admin: 09/24/16 11:46 Dose: 325 mg Metronidazole (Flagyl 500mg Premixed Ivpb -) 100 mls @ 100 mls/hr IVPB Q8H-IV [facility] Last Admin: 09/24/16 11:46 Dose: 100 mls/hr Sodium Chloride (Normal Saline -) 1,000 mls @ 70 mls/hr IV ASDIR [facility] Last Admin: 09/24/16 05:51 Dose: 70 mls/hr Insulin Aspart (Novolog Vial Sliding Scale -) 1 vial SQ ACHS [facility] PRN Reason: Protocol Last Admin: 09/24/16 12:03 Dose: Not Given Lisinopril (Prinivil) 5 mg PO DAILY [facility] Last Admin: 09/24/16 11:46 Dose: 5 mg Metformin HCl (Glucophage -) 500 mg PO BIDI [facility] Last Admin: 09/24/16 06:23 Dose: 500 mg Pantoprazole Sodium (Protonix -) 40 mg PO DAILY [facility] Last Admin: 09/24/16 11:46 Dose: 40 mg Phenytoin Sodium (Dilantin -) 300 mg PO DAILY [facility] Last Admin: 09/24/16 11:45 Dose: 300 mg Risperidone (Risperdal -) 0.25 mg PO DAILY [facility] Last Admin: 09/24/16 11:46 Dose: 0.25 mg Sertraline HCl (Zoloft -) 100 mg PO DAILY [facility] Last Admin: 09/24/16 11:45 Dose: 100 mg Family Disease History - Family Disease History Family History: Unable to Obtain (due to MS) Review of Systems Unable to obtain ROS, reason: due to MS Physical Exam Last Vital Signs Temp Pulse Resp BP Pulse Ox 98.5 F 100 H 18 118/76 92 L 09/24/16 10:00 09/24/16 10:00 09/24/16 10:00 09/24/16 10:00 09/24/16 09:00 HEENT: YAYA, EOM Intact Cor: RSR, No murmurs, No gallops Lungs: Clear to P&A Abd: Soft, Normal bowel sounds, No organomegaly Ext:No significant edema Abnormal Lab Results 09/23/16 09/23/16 09/24/16 14:25 22:20 06:05 WBC 13.0 H RBC 3.68 L Hgb 7.9 L Hct 25.9 L MCV 70.4 L MCHC 30.5 L RDW 19.8 H MPV 7.1 L Anion Gap Creatinine Random Glucose Lactic Acid 3.028 H* 2.133 H* Calcium Total Protein Albumin 09/24/16 06:05 WBC RBC Hgb Hct MCV MCHC RDW MPV Anion Gap 7 L Creatinine 0.6 L Random Glucose 118 H Lactic Acid Calcium 8.0 L Total Protein 5.4 L Albumin 2.4 L Assessment/Plan 55 year old with autism presents with new onset of seizures. New RLL infiltrate not present on initial Chest X-ray. Elevated WBC likely secondary to same. Probable aspiration pneumonia on antibiotics per I.D. Normal WBC on admission against underling hematology disorder or MPD. Has hypochromic, microcytic anemia .Will need GI assessment. To check FE++ studies and hemoglobin studies. For celiac screening and if feasible stool guaics. Reverse A/G ratio and to obtain protein studies. To monitor
--- NOTE | 2016-09-24 14:25 | PN ---
Progress Note (short form) - Note Progress Note: Patient seen and examined Feels well no complaints Last Vital Signs Temp Pulse Resp BP Pulse Ox 97.5 F L 127 H 20 121/75 92 L 09/24/16 15:00 09/24/16 15:00 09/24/16 15:00 09/24/16 15:00 09/24/16 09:00 HEENT: YAYA, EOM Intact Oropharynx: No thrush, No mucositis Cor: RSR, No murmurs, No gallops Lungs: Clear to P&A Abd: Soft, Normal bowel sounds, No organomegaly Ext:No significant edema Skin: No rashes, Integument intact Abnormal Lab Results 09/23/16 09/24/16 09/24/16 22:20 06:05 06:05 WBC 13.0 H RBC 3.68 L Hgb 7.9 L Hct 25.9 L MCV 70.4 L MCHC 30.5 L RDW 19.8 H MPV 7.1 L Anion Gap 7 L Creatinine 0.6 L Random Glucose 118 H Lactic Acid 2.133 H* Calcium 8.0 L Total Protein 5.4 L Albumin 2.4 L Current Medications Acetaminophen (Tylenol -) 650 mg PO Q4H PRN PRN Reason: FEVER OR PAIN Last Admin: 09/23/16 21:58 Dose: 650 mg Albuterol/Ipratropium (Duoneb -) 1 amp NEB Q4H PRN PRN Reason: SHORTNESS OF BREATH Atorvastatin Calcium (Lipitor -) 40 mg PO HS [facility] Last Admin: 09/23/16 21:58 Dose: 40 mg Ceftriaxone Sodium (Rocephin 2gm Ivpb (Pre-Docked)) 2 gm IVPB DAILY [facility] Last Admin: 09/24/16 11:47 Dose: 2 gm Ferrous Sulfate (Feosol -) 325 mg PO TIDCM [facility] Last Admin: 09/24/16 11:46 Dose: 325 mg Metronidazole (Flagyl 500mg Premixed Ivpb -) 100 mls @ 100 mls/hr IVPB Q8H-IV [facility] Last Admin: 09/24/16 11:46 Dose: 100 mls/hr Sodium Chloride (Normal Saline -) 1,000 mls @ 70 mls/hr IV ASDIR [facility] Last Admin: 09/24/16 05:51 Dose: 70 mls/hr Insulin Aspart (Novolog Vial Sliding Scale -) 1 vial SQ ACHS [facility] PRN Reason: Protocol Last Admin: 09/24/16 12:03 Dose: Not Given Lisinopril (Prinivil) 5 mg PO DAILY [facility] Last Admin: 09/24/16 11:46 Dose: 5 mg Metformin HCl (Glucophage -) 500 mg PO BIDI [facility] Last Admin: 09/24/16 06:23 Dose: 500 mg Pantoprazole Sodium (Protonix -) 40 mg PO DAILY [facility] Last Admin: 09/24/16 11:46 Dose: 40 mg Phenytoin Sodium (Dilantin -) 300 mg PO DAILY [facility] Last Admin: 09/24/16 11:45 Dose: 300 mg Risperidone (Risperdal -) 0.25 mg PO DAILY [facility] Last Admin: 09/24/16 11:46 Dose: 0.25 mg Sertraline HCl (Zoloft -) 100 mg PO DAILY [facility] Last Admin: 09/24/16 11:45 Dose: 100 mg A/P 55 year old with autism presents with new onset of seizures. New RLL infiltrate not present on initial Chest X-ray. Elevated WBC likely secondary to same. Probable aspiration pneumonia on antibiotics per I.D. Normal WBC on admission against underling hematology disorder or MPD. Has hypochromic, microcytic anemia .Will need GI assessment. Iron studies c/w iron deficiency --iron saturatuon --5%. On feosol Reverse A/G ratio --protein studies --pending
--- NOTE | 2016-09-24 15:03 | PN ---
Physical Exam: SUBJECTIVE: Patient seen and examined at bed side this morning. Says " Eat" Popcorn" ROS cannot be obtained because he is non verbal at baseline. OBJECTIVE: Vital Signs Period Temp Pulse Resp BP Sys/Soliz Pulse Ox Last 24 Hr 98.5 F-103.3 F 92-127 18-20 118-131/70-79 92-98 GENERAL: Awake, alert, in no acute distress. HEAD: Normal with no signs of trauma. EYES: PEERLA, no pallor or icterus. EARS, NOSE, THROAT: Ears normal. NECK: Supple. LUNGS: Uncooperative hence couldn't listen to added sounds. HEART: S1, S2 no murmur. ABDOMEN: Soft, nontender, not distended, normoactive bowel sounds, no guarding, no rebound, no masses. No hepatomegaly or splenomegaly. MUSCULOSKELETAL: Normal range of motion at all joints. No bony deformities or tenderness. No CVA tenderness. UPPER EXTREMITIES: 2+ pulses, warm, well-perfused. No cyanosis. No clubbing. Cap refill <2 seconds. No peripheral edema. LOWER EXTREMITIES: 2+ pulses, warm, well-perfused. No calf tenderness. No peripheral edema. NEUROLOGICAL: Cranial nerves II-XII intact. Reflexes intact. Spoke single words like "popcorn, eat, sit" PSYCHIATRIC:Poor eye contact. Appropriate mood and affect. SKIN: Warm, dry, normal turgor, no rashes or lesions noted. Laboratory Results - last 24 hr 09/22/16 09/22/16 09/23/16 05:00 14:20 14:25 WBC RBC Hgb Hct MCV MCHC RDW Plt Count MPV Neutrophils % Lymphocytes % Monocytes % Eosinophils % Basophils % Polychromasia Hypochromic-Microcytic Poikilocytosis Anisocytosis Microcytosis Macrocytosis Target Cells Ovalocytes Fragmented RBCs Morphology Comment Sodium Potassium Chloride Carbon Dioxide Anion Gap BUN Creatinine Creat Clearance w eGFR POC Glucometer Random Glucose Lactic Acid 3.028 H* Calcium Total Bilirubin AST ALT Alkaline Phosphatase Total Protein Albumin IgM 98 Hepatitis C Antibody 0.3 09/23/16 09/23/16 09/23/16 16:54 21:46 22:20 WBC RBC Hgb Hct MCV MCHC RDW Plt Count MPV Neutrophils % Lymphocytes % Monocytes % Eosinophils % Basophils % Polychromasia Hypochromic-Microcytic Poikilocytosis Anisocytosis Microcytosis Macrocytosis Target Cells Ovalocytes Fragmented RBCs Morphology Comment Sodium Potassium Chloride Carbon Dioxide Anion Gap BUN Creatinine Creat Clearance w eGFR POC Glucometer 169 114 Random Glucose Lactic Acid 2.133 H* Calcium Total Bilirubin AST ALT Alkaline Phosphatase Total Protein Albumin IgM Hepatitis C Antibody 09/24/16 09/24/16 09/24/16 05:31 06:05 06:05 WBC 13.0 H RBC 3.68 L Hgb 7.9 L Hct 25.9 L MCV 70.4 L MCHC 30.5 L RDW 19.8 H Plt Count 163 MPV 7.1 L Neutrophils % 58.9 Lymphocytes % 30.7 D Monocytes % 9.5 Eosinophils % 0.7 Basophils % 0.2 Polychromasia 1+ Hypochromic-Microcytic 2+ Poikilocytosis 2+ Anisocytosis 1+ Microcytosis 1+ Macrocytosis 1+ Target Cells 1+ Ovalocytes 2+ Fragmented RBCs 1+ Morphology Comment Slide scanned Sodium 141 Potassium 3.8 Chloride 106 Carbon Dioxide 28 Anion Gap 7 L BUN 8 D Creatinine 0.6 L Creat Clearance w eGFR > 60 POC Glucometer 124 Random Glucose 118 H Lactic Acid Calcium 8.0 L Total Bilirubin 0.2 D AST 37 ALT 57 Alkaline Phosphatase 70 Total Protein 5.4 L Albumin 2.4 L IgM Hepatitis C Antibody 09/24/16 06:05 WBC RBC Hgb Hct MCV MCHC RDW Plt Count MPV Neutrophils % Lymphocytes % Monocytes % Eosinophils % Basophils % Polychromasia Hypochromic-Microcytic Poikilocytosis Anisocytosis Microcytosis Macrocytosis Target Cells Ovalocytes Fragmented RBCs Morphology Comment Sodium Potassium Chloride Carbon Dioxide Anion Gap BUN Creatinine Creat Clearance w eGFR POC Glucometer Random Glucose Lactic Acid 1.055 Calcium Total Bilirubin AST ALT Alkaline Phosphatase Total Protein Albumin IgM Hepatitis C Antibody Active Medications Generic Name Dose Route Start Last Admin Trade Name Freq PRN Reason Stop Dose Admin Acetaminophen 650 mg 09/21/16 09:53 09/23/16 21:58 Tylenol - PO 650 mg Q4H PRN Administration FEVER OR PAIN Albuterol/Ipratropium 1 amp 09/21/16 13:36 Duoneb - NEB Q4H PRN SHORTNESS OF BREATH Atorvastatin Calcium 40 mg 09/20/16 22:00 09/23/16 21:58 Lipitor - PO 40 mg HS [facility] Administration Ceftriaxone Sodium 2 gm 09/23/16 10:00 09/24/16 11:47 Rocephin 2gm Ivpb (Pre-Docked) IVPB 2 gm DAILY [facility] Administration Ferrous Sulfate 325 mg 09/21/16 08:00 09/24/16 11:46 Feosol - PO 325 mg TIDCM [facility] Administration Metronidazole 100 mls @ 100 mls/hr 09/21/16 14:30 09/24/16 11:46 Flagyl 500mg Premixed Ivpb - IVPB 100 mls/hr Q8H-IV [facility] Administration Sodium Chloride 1,000 mls @ 70 mls/hr 09/22/16 13:15 09/24/16 05:51 Normal Saline - IV 70 mls/hr ASDIR [facility] Administration Insulin Aspart 1 vial 09/20/16 22:00 09/24/16 12:03 Novolog Vial Sliding Scale - SQ Not Given ACHS [facility] Protocol Lisinopril 5 mg 09/21/16 10:00 09/24/16 11:46 Prinivil PO 5 mg DAILY [facility] Administration Metformin HCl 500 mg 09/21/16 07:00 09/24/16 06:23 Glucophage - PO 500 mg BIDI [facility] Administration Pantoprazole Sodium 40 mg 09/21/16 10:00 09/24/16 11:46 Protonix - PO 40 mg DAILY [facility] Administration Phenytoin Sodium 300 mg 09/21/16 19:15 09/24/16 11:45 Dilantin - PO 300 mg DAILY [facility] Administration Risperidone 0.25 mg 09/21/16 10:00 09/24/16 11:46 Risperdal - PO 0.25 mg DAILY [facility] Administration Sertraline HCl 100 mg 09/21/16 10:00 09/24/16 11:45 Zoloft - PO 100 mg DAILY [facility] Administration 09/24/2016 MRI brain: No evidence of edema, hemorrhage, acute ischemic changes Approx. 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 55 year old male with significant past medical history of Autism, DM, HTN, HLD, H. pylori was brought in via EMS after a witnessed seizure. Assessment:- 1. Witnessed Seizure 2. Possible aspiration pneumonia 3. Austism 4. HTN 5. HLD 6. DM-II 7. H. pylori recently diagnosed Plan:- - Unusual to have new onset seizure at the age of 55 years, could be due to metabolic syndrome vs epilepsy - CT head negative. EEG report pending. - Possible aspiration pneumonia given the h/o vomiting post seizure. CXR showed new Right patchy infiltrate. Initial CXR was negative - Blood cultures/Urine cultures pending- results may alter since patient was being given triple therapy (clarithromycin, pantoprazole, augmentin) for H. pylori. - Patient started on Ceftriaxone and Metronidazole - Monitor for seizure activity Illness, Investigation and Plan of care explained to the patient's sister over the phone. She verbalized understanding. Case seen and discussed with Dr. Coronel. Thank you for the consultative opportunity. Visit type - Emergency Visit Emergency Visit: Yes ED Registration Date: 09/20/16 Care time: The patient presented to the Emergency Department on the above date and was hospitalized for further evaluation of their emergent condition. - New Patient This patient is new to me today: No - Critical Care Critical Care patient: No
[2016-09-24] MEDS ORDERED: INSULIN (NOVOLOG) ASPART 100 UNITS/ML 10ML VIAL ONE ×2 (18:07→21:33)
[2016-09-24] MEDS: ATORVASTATIN CA 40 MG TABLET (FP) PO SCH (21:46)
[2016-09-25 00:15] LABS: A/G RATIO 0.9 (0.7-1.7); ALBUMIN 2.5 g/dL (2.9-4.4); ALPHA-1-GLOBULIN 0.4 g/dL (0.0-0.4); BETA GLOBULIN 0.8 g/dL (0.7-1.3); GAMMA GLOBULIN 0.9 g/dL (0.4-1.8); GLOBULIN, TOTAL 2.8 g/dL (2.2-3.9); M-SPIKE Not Observed g/dL (Not Observed); TOTAL PROTEIN 5.3 g/dL (6.0-8.5)
[2016-09-25 00:15] LABS: HBeAG Negative (Negative); HEP B SURFACE AB Non Reactive (.); HEP BE AB Negative (Negative)
[2016-09-25] MEDS: METRONIDAZOLE 500 MG PREMIXED 100 ML IVPB SCH ×3 (01:39→17:17)
[2016-09-25] MEDS: SODIUM CHLORIDE 1,000 ML IV SCH ×3 (06:28→21:15)
[2016-09-25] MEDS: metFORMIN HCL 500 MG TABLET (FP) PO SCH ×2 (06:29→16:40)
[2016-09-25] MEDS: INSULIN SLIDING SCALE (NOVOLOG) 1 VIAL SQ SCH ×4 (06:29→21:14)
[2016-09-25 07:28] LABS: BASOPHIL 0.3 % (0-2.0); EOSINOPHIL 1.8 % (0-4.5); MCH 22.2 pg (25.7-33.7); MCHC 31.9 g/dl (32.0-35.9); MEAN CELL VOLUME 69.4 fl (80-96); MEAN PLT VOLUME 6.9 fl (7.5-11.1); NEUTROPHILS 57.3 % (42.8-82.8); PLATELET COUNT 178 K/MM3 (134-434); RDW 19.2 % (11.9-15.9); WHITE BLOOD COUNT 11.9 K/mm3 (4.0-10.0)
[2016-09-25 07:47] LABS: ALBUMIN 2.2 g/dl (3.4-5.0); ANION GAP 9 (8-16); BILIRUBIN,TOTAL 0.3 mg/dL (0.2-1.0); CALCIUM 7.7 mg/dL (8.5-10.1); CO2 26 mmol/L (21-32); CREATININE 0.6 mg/dL (0.7-1.3); GLUCOSE,RANDOM 111 mg/dL (74-106); SGOT/AST 24 U/L (15-37); SGPT/ALT 45 U/L (12-78); TOT PROT 5.3 g/dl (6.4-8.2)
[2016-09-25 07:48] LABS: ALK PHOS 60 U/L (45-117)
[2016-09-25] MEDS: cefTRIAXone 2 GM/100 ML BAG (PRE-DOCKED) IVPB SCH (09:16)
[2016-09-25] MEDS: risperiDONE 0.25 MG TABLET (FP) PO SCH (09:20)
[2016-09-25] MEDS: FERROUS SO4 325 MG TABLET (FP) PO SCH ×3 (09:20→16:40)
[2016-09-25] MEDS: PHENYTOIN NA EXTENDED 100 MG CAPSULE (FP) PO SCH (09:20)
[2016-09-25] MEDS: PANTOPRAZOLE 40 MG TABLET (FP) PO SCH (09:20)
[2016-09-25] MEDS: LISINOPRIL 5 MG TABLET (FP) PO SCH (09:20)
[2016-09-25] MEDS: SERTRALINE HCL 50 MG TABLET (FP) PO SCH (09:20)
--- NOTE | 2016-09-25 11:29 | PN ---
Physical Exam: SUBJECTIVE: Patient seen and examined at bed side this morning. Said " Popcorn, eat, cookie, thank you, bye" OBJECTIVE: Vital Signs Period Temp Pulse Resp BP Sys/Soliz Pulse Ox Last 24 Hr 97.5 F-98.4 F 110-127 16-20 121-136/71-81 93 GENERAL: Awake, alert, in no acute distress. HEAD: Normal with no signs of trauma. EYES: PEERLA, no pallor or icterus. EARS, NOSE, THROAT: Ears normal. NECK: Supple. LUNGS: Uncooperative hence couldn't listen to added sounds. HEART: S1, S2 no murmur. ABDOMEN: Soft, nontender, not distended, normoactive bowel sounds, no guarding, no rebound, no masses. No hepatomegaly or splenomegaly. MUSCULOSKELETAL: Normal range of motion at all joints. No bony deformities or tenderness. No CVA tenderness. UPPER EXTREMITIES: 2+ pulses, warm, well-perfused. No cyanosis. No clubbing. Cap refill <2 seconds. No peripheral edema. LOWER EXTREMITIES: 2+ pulses, warm, well-perfused. No calf tenderness. No peripheral edema. NEUROLOGICAL: Cranial nerves II-XII intact. Reflexes intact. Spoke single words like "popcorn, eat, sit" PSYCHIATRIC:Poor eye contact. Appropriate mood and affect. SKIN: Warm, dry, normal turgor, no rashes or lesions noted. Laboratory Results - last 24 hr 09/22/16 09/22/16 09/23/16 05:00 14:20 05:50 WBC RBC Hgb Hct MCV MCHC RDW Plt Count MPV Neutrophils % Lymphocytes % Monocytes % Eosinophils % Basophils % Sodium Potassium Chloride Carbon Dioxide Anion Gap BUN Creatinine Creat Clearance w eGFR POC Glucometer Random Glucose Calcium Total Bilirubin AST ALT Alkaline Phosphatase Serum Total Protein 5.3 L Total Protein Albumin 2.5 L Globulin Cancelled Albumin/Globulin Ratio Cancelled Qlbyg-2-Szvexgzmb 0.4 Ztqzh-5-Pgobmsagr 0.7 Beta Globulins 0.8 Gamma Globulins 0.9 IgG Cancelled IgA Cancelled IgM 98 98 MARK M-Juan Not observed MARK Comments Serum MARK Interpret Comment: Hep Bs Antigen Negative Hep Bs Ab Concentration Non reactive Hep B Core Total Ab Negative Hep B Core IgM Ab Negative Hepatitis Be Antibody Negative Hepatitis Be Antigen Negative Hepatitis C Antibody 0.3 01/06/0209/24/16 09/25/16 16:50 21:38 05:53 WBC RBC Hgb Hct MCV MCHC RDW Plt Count MPV Neutrophils % Lymphocytes % Monocytes % Eosinophils % Basophils % Sodium Potassium Chloride Carbon Dioxide Anion Gap BUN Creatinine Creat Clearance w eGFR POC Glucometer 159 152 115 Random Glucose Calcium Total Bilirubin AST ALT Alkaline Phosphatase Serum Total Protein Total Protein Albumin Globulin Albumin/Globulin Ratio Ivfqg-0-Zlfmyegex Qghiu-0-Jglgxhchk Beta Globulins Gamma Globulins IgG IgA IgM MRAK M-Juan MARK Comments Serum MARK Interpret Hep Bs Antigen Hep Bs Ab Concentration Hep B Core Total Ab Hep B Core IgM Ab Hepatitis Be Antibody Hepatitis Be Antigen Hepatitis C Antibody 09/25/16 09/25/16 06:00 07:30 WBC 11.9 H RBC 3.64 L Hgb 8.1 L Hct 25.3 L MCV 69.4 L MCHC 31.9 L RDW 19.2 H Plt Count 178 MPV 6.9 L Neutrophils % 57.3 Lymphocytes % 31.1 Monocytes % 9.5 Eosinophils % 1.8 D Basophils % 0.3 Sodium 143 Potassium 3.7 Chloride 108 H Carbon Dioxide 26 Anion Gap 9 BUN 9 Creatinine 0.6 L Creat Clearance w eGFR > 60 POC Glucometer Random Glucose 111 H Calcium 7.7 L Total Bilirubin 0.3 D AST 24 D ALT 45 D Alkaline Phosphatase 60 Serum Total Protein Total Protein 5.3 L Albumin 2.2 L Globulin Albumin/Globulin Ratio Kdrgq-8-Guvmzjydt Qxler-0-Knzcyulll Beta Globulins Gamma Globulins IgG IgA IgM MARK M-Juan MARK Comments Serum MARK Interpret Hep Bs Antigen Hep Bs Ab Concentration Hep B Core Total Ab Hep B Core IgM Ab Hepatitis Be Antibody Hepatitis Be Antigen Hepatitis C Antibody Active Medications Generic Name Dose Route Start Last Admin Trade Name Freq PRN Reason Stop Dose Admin Acetaminophen 650 mg 09/21/16 09:53 09/23/16 21:58 Tylenol - PO 650 mg Q4H PRN Administration FEVER OR PAIN Albuterol/Ipratropium 1 amp 09/21/16 13:36 09/25/16 10:09 Duoneb - NEB 1 amp Q4H PRN Administration SHORTNESS OF BREATH Atorvastatin Calcium 40 mg 09/20/16 22:00 09/24/16 21:46 Lipitor - PO 40 mg HS [facility] Administration Ceftriaxone Sodium 2 gm 09/23/16 10:00 09/25/16 09:16 Rocephin 2gm Ivpb (Pre-Docked) IVPB 2 gm DAILY [facility] Administration Ferrous Sulfate 325 mg 09/21/16 08:00 09/25/16 09:20 Feosol - PO 325 mg TIDCM [facility] Administration Metronidazole 100 mls @ 100 mls/hr 09/21/16 14:30 09/25/16 09:16 Flagyl 500mg Premixed Ivpb - IVPB 100 mls/hr Q8H-IV [facility] Administration Sodium Chloride 1,000 mls @ 70 mls/hr 09/22/16 13:15 09/25/16 06:28 Normal Saline - IV 70 mls/hr ASDIR [facility] Administration Insulin Aspart 1 vial 09/20/16 22:00 09/25/16 06:29 Novolog Vial Sliding Scale - SQ Not Given ACHS [facility] Protocol Lisinopril 5 mg 09/21/16 10:00 09/25/16 09:20 Prinivil PO 5 mg DAILY [facility] Administration Metformin HCl 500 mg 09/21/16 07:00 09/25/16 06:29 Glucophage - PO 500 mg BIDI [facility] Administration Pantoprazole Sodium 40 mg 09/21/16 10:00 09/25/16 09:20 Protonix - PO Not Given DAILY [facility] Phenytoin Sodium 300 mg 09/21/16 19:15 09/25/16 09:20 Dilantin - PO 300 mg DAILY [facility] Administration Risperidone 0.25 mg 09/21/16 10:00 09/25/16 09:20 Risperdal - PO 0.25 mg DAILY [facility] Administration Sertraline HCl 100 mg 09/21/16 10:00 09/25/16 09:20 Zoloft - PO 100 mg DAILY [facility] Administration 55 year old male with significant past medical history of Autism, DM, HTN, HLD, H. pylori was brought in via EMS after a witnessed seizure. Assessment:- 1. Witnessed Seizure 2. Possible aspiration pneumonia 3. Austism 4. HTN 5. HLD 6. DM-II 7. H. pylori recently diagnosed 8. Hypochromic, microcytic anemia Plan:- - Unusual to have new onset seizure at the age of 55 years, could be due to metabolic syndrome vs epilepsy - CT head negative. EEG report pending. - Possible aspiration pneumonia given the h/o vomiting post seizure. CXR showed new Right patchy infiltrate. Initial CXR was negative - Blood cultures/Urine cultures pending- results may alter since patient was being given triple therapy (clarithromycin, pantoprazole, augmentin) for H. pylori. - Patient started on Ceftriaxone and Metronidazole - Monitor for seizure activity Illness, Investigation and Plan of care explained to the patient's sister over the phone. She verbalized understanding. Will discuss case with Dr. Coronel. Thank you for the consultative opportunity. Visit type - Emergency Visit Emergency Visit: Yes ED Registration Date: 09/20/16 Care time: The patient presented to the Emergency Department on the above date and was hospitalized for further evaluation of their emergent condition. - New Patient This patient is new to me today: No - Critical Care Critical Care patient: No
--- NOTE | 2016-09-25 13:21 | PN ---
Progress Note, Physician Chief Complaint: basilia aggarwal - Current Medication List Current Medications: Active Medications Acetaminophen (Tylenol -) 650 mg PO Q4H PRN PRN Reason: FEVER OR PAIN Last Admin: 09/23/16 21:58 Dose: 650 mg Albuterol/Ipratropium (Duoneb -) 1 amp NEB Q4H PRN PRN Reason: SHORTNESS OF BREATH Last Admin: 09/25/16 10:09 Dose: 1 amp Atorvastatin Calcium (Lipitor -) 40 mg PO HS [facility] Last Admin: 09/24/16 21:46 Dose: 40 mg Ceftriaxone Sodium (Rocephin 2gm Ivpb (Pre-Docked)) 2 gm IVPB DAILY [facility] Last Admin: 09/25/16 09:16 Dose: 2 gm Ferrous Sulfate (Feosol -) 325 mg PO TIDCM [facility] Last Admin: 09/25/16 12:23 Dose: 325 mg Metronidazole (Flagyl 500mg Premixed Ivpb -) 100 mls @ 100 mls/hr IVPB Q8H-IV [facility] Last Admin: 09/25/16 09:16 Dose: 100 mls/hr Sodium Chloride (Normal Saline -) 1,000 mls @ 70 mls/hr IV ASDIR [facility] Last Admin: 09/25/16 06:28 Dose: 70 mls/hr Insulin Aspart (Novolog Vial Sliding Scale -) 1 vial SQ ACHS [facility] PRN Reason: Protocol Last Admin: 09/25/16 12:23 Dose: 2 units Lisinopril (Prinivil) 5 mg PO DAILY [facility] Last Admin: 09/25/16 09:20 Dose: 5 mg Metformin HCl (Glucophage -) 500 mg PO BIDI [facility] Last Admin: 09/25/16 06:29 Dose: 500 mg Pantoprazole Sodium (Protonix -) 40 mg PO DAILY [facility] Last Admin: 09/25/16 09:20 Dose: Not Given Phenytoin Sodium (Dilantin -) 300 mg PO DAILY [facility] Last Admin: 09/25/16 09:20 Dose: 300 mg Risperidone (Risperdal -) 0.25 mg PO DAILY [facility] Last Admin: 09/25/16 09:20 Dose: 0.25 mg Sertraline HCl (Zoloft -) 100 mg PO DAILY [facility] Last Admin: 09/25/16 09:20 Dose: 100 mg - Objective Vital Signs: Vital Signs Temperature 98.4 F 09/25/16 10:00 Pulse Rate 107 H 09/25/16 10:00 Respiratory Rate 16 09/25/16 10:00 Blood Pressure 128/80 09/25/16 10:00 O2 Sat by Pulse Oximetry (%) 92 L 09/25/16 09:00 Constitutional: Yes: Calm Neck: Yes: Trachea Midline Cardiovascular: Yes: Regular Rate and Rhythm, S1, S2 Respiratory: Yes: Diminished (ronchi on right side left side clear) Gastrointestinal: Yes: Normal Bowel Sounds, Soft Edema: No Neurological: Yes: Alert Labs: CBC, BMP 09/25/16 07:30 09/25/16 06:00 Problem List - Problems (1) Aspiration pneumonia Assessment/Plan: MBS normal abx per ID seen by rama crowder Code(s): J69.0 - PNEUMONITIS DUE TO INHALATION OF FOOD AND VOMIT (2) Fever Assessment/Plan: blod cultures negative ID on board flagyl and rocephin Code(s): R50.9 - FEVER, UNSPECIFIED (3) New onset seizure Assessment/Plan: eeg and MRI negative seizure meds Code(s): R56.9 - UNSPECIFIED CONVULSIONS (4) Hyperlipidemia Assessment/Plan: statin Code(s): E78.5 - HYPERLIPIDEMIA, UNSPECIFIED (5) Hypertension Assessment/Plan: mionitior Code(s): I10 - ESSENTIAL (PRIMARY) HYPERTENSION (6) Type 2 diabetes mellitus Assessment/Plan: metformin Code(s): E11.9 - TYPE 2 DIABETES MELLITUS WITHOUT COMPLICATIONS
--- NOTE | 2016-09-25 14:21 | PN ---
Progress Note (short form) - Note Progress Note: NAD resting comfortably Vital Signs Period Temp Pulse Resp BP Sys/Soliz Pulse Ox Last 24 Hr 97.5 F-98.4 F 107-127 16-20 121-136/71-81 92-93 cor-rrr lungs crackles right bases abd- soft,nt ext no edema CBC, BMP 09/25/16 07:30 09/25/16 06:00 Microbiology 09/21/16 09:40 Blood - Peripheral Venous Blood Culture - Preliminary NO GROWTH OBTAINED AFTER 96 HOURS, INCUBATION TO CONTINUE FOR 1 DAYS. 09/21/16 09:40 Blood - Peripheral Venous Blood Culture - Preliminary NO GROWTH OBTAINED AFTER 96 HOURS, INCUBATION TO CONTINUE FOR 1 DAYS. 09/23/16 21:35 Blood - Peripheral Venous Blood Culture - Preliminary NO GROWTH OBTAINED AFTER 24 HOURS, INCUBATION TO CONTINUE FOR 4 DAYS. 09/23/16 21:35 Blood - Peripheral Venous Blood Culture - Preliminary NO GROWTH OBTAINED AFTER 24 HOURS, INCUBATION TO CONTINUE FOR 4 DAYS. 09/20/16 20:09 Urine - Urine Clean Catch Urine Culture - Final NO GROWTH OBTAINED Current Medications Acetaminophen (Tylenol -) 650 mg PO Q4H PRN PRN Reason: FEVER OR PAIN Last Admin: 09/23/16 21:58 Dose: 650 mg Albuterol/Ipratropium (Duoneb -) 1 amp NEB Q4H PRN PRN Reason: SHORTNESS OF BREATH Last Admin: 09/25/16 10:09 Dose: 1 amp Atorvastatin Calcium (Lipitor -) 40 mg PO HS [facility] Last Admin: 09/24/16 21:46 Dose: 40 mg Ceftriaxone Sodium (Rocephin 2gm Ivpb (Pre-Docked)) 2 gm IVPB DAILY [facility] Last Admin: 09/25/16 09:16 Dose: 2 gm Ferrous Sulfate (Feosol -) 325 mg PO TIDCM [facility] Last Admin: 09/25/16 12:23 Dose: 325 mg Metronidazole (Flagyl 500mg Premixed Ivpb -) 100 mls @ 100 mls/hr IVPB Q8H-IV [facility] Last Admin: 09/25/16 09:16 Dose: 100 mls/hr Sodium Chloride (Normal Saline -) 1,000 mls @ 70 mls/hr IV ASDIR [facility] Last Admin: 09/25/16 06:28 Dose: 70 mls/hr Insulin Aspart (Novolog Vial Sliding Scale -) 1 vial SQ ACHS [facility] PRN Reason: Protocol Last Admin: 09/25/16 12:23 Dose: 2 units Lisinopril (Prinivil) 5 mg PO DAILY [facility] Last Admin: 09/25/16 09:20 Dose: 5 mg Metformin HCl (Glucophage -) 500 mg PO BIDI [facility] Last Admin: 09/25/16 06:29 Dose: 500 mg Pantoprazole Sodium (Protonix -) 40 mg PO DAILY [facility] Last Admin: 09/25/16 09:20 Dose: Not Given Phenytoin Sodium (Dilantin -) 300 mg PO DAILY [facility] Last Admin: 09/25/16 09:20 Dose: 300 mg Risperidone (Risperdal -) 0.25 mg PO DAILY [facility] Last Admin: 09/25/16 09:20 Dose: 0.25 mg Sertraline HCl (Zoloft -) 100 mg PO DAILY [facility] Last Admin: 09/25/16 09:20 Dose: 100 mg a/p aspiration pneumonia day #5 rocephin/flagyl still hypoxic and tachycardic, extensive left sided infiltrate anticipate another 48 hours iv antibiotics before switch to PO augmentin new onset seizures hypertension NIDDM Problem List - Problems (1) Aspiration pneumonia Code(s): J69.0 - PNEUMONITIS DUE TO INHALATION OF FOOD AND VOMIT (2) New onset seizure Code(s): R56.9 - UNSPECIFIED CONVULSIONS
--- NOTE | 2016-09-25 14:21 | PN ---
Progress Note (short form) - Note Progress Note: PULMONARY No fevers recorded. Saturating 92% on room air. Last Vital Signs Temp Pulse Resp BP Pulse Ox 98.4 F 107 H 16 128/80 92 L 09/25/16 10:00 09/25/16 10:00 09/25/16 10:00 09/25/16 10:00 09/25/16 09:00 Gen: NAD at rest Heart: tachycardic, regular Lung: right sided rales Abd: soft, nontender Ext: no edema CBC, BMP 09/25/16 07:30 09/25/16 06:00 Active Medications Acetaminophen (Tylenol -) 650 mg PO Q4H PRN PRN Reason: FEVER OR PAIN Last Admin: 09/23/16 21:58 Dose: 650 mg Albuterol/Ipratropium (Duoneb -) 1 amp NEB Q4H PRN PRN Reason: SHORTNESS OF BREATH Last Admin: 09/25/16 10:09 Dose: 1 amp Atorvastatin Calcium (Lipitor -) 40 mg PO HS [facility] Last Admin: 09/24/16 21:46 Dose: 40 mg Ceftriaxone Sodium (Rocephin 2gm Ivpb (Pre-Docked)) 2 gm IVPB DAILY [facility] Last Admin: 09/25/16 09:16 Dose: 2 gm Ferrous Sulfate (Feosol -) 325 mg PO TIDCM [facility] Last Admin: 09/25/16 12:23 Dose: 325 mg Metronidazole (Flagyl 500mg Premixed Ivpb -) 100 mls @ 100 mls/hr IVPB Q8H-IV [facility] Last Admin: 09/25/16 09:16 Dose: 100 mls/hr Sodium Chloride (Normal Saline -) 1,000 mls @ 70 mls/hr IV ASDIR [facility] Last Admin: 09/25/16 06:28 Dose: 70 mls/hr Insulin Aspart (Novolog Vial Sliding Scale -) 1 vial SQ ACHS [facility] PRN Reason: Protocol Last Admin: 09/25/16 12:23 Dose: 2 units Lisinopril (Prinivil) 5 mg PO DAILY [facility] Last Admin: 09/25/16 09:20 Dose: 5 mg Metformin HCl (Glucophage -) 500 mg PO BIDI [facility] Last Admin: 09/25/16 06:29 Dose: 500 mg Pantoprazole Sodium (Protonix -) 40 mg PO DAILY [facility] Last Admin: 09/25/16 09:20 Dose: Not Given Phenytoin Sodium (Dilantin -) 300 mg PO DAILY [facility] Last Admin: 09/25/16 09:20 Dose: 300 mg Risperidone (Risperdal -) 0.25 mg PO DAILY [facility] Last Admin: 09/25/16 09:20 Dose: 0.25 mg Sertraline HCl (Zoloft -) 100 mg PO DAILY [facility] Last Admin: 09/25/16 09:20 Dose: 100 mg A/P Aspiration Pneumonia Autism Sepsis Seizure Disorder HTN DM - continue antibiotics - aspiration precautions - O2 to keep SpO2 >90% - inhaled bronchodilators - DVT prophylaxis
--- NOTE | 2016-09-25 19:02 | PN ---
Progress Note (short form) - Note Progress Note: Patient seen and examined Last Vital Signs Temp Pulse Resp BP Pulse Ox 98.8 F 112 H 20 132/85 92 L 09/25/16 14:01 09/25/16 14:01 09/25/16 14:01 09/25/16 14:01 09/25/16 09:00 Lungs with rales right base RSR Soft abd No edema CBC, BMP 09/25/16 07:30 09/25/16 06:00 Current Medications Generic Name Dose Route Start Last Admin Trade Name Freq PRN Reason Stop Dose Admin Acetaminophen 650 mg 09/21/16 09:53 09/23/16 21:58 Tylenol - PO 650 mg Q4H PRN Administration FEVER OR PAIN Albuterol/Ipratropium 1 amp 09/21/16 13:36 09/25/16 10:09 Duoneb - NEB 1 amp Q4H PRN Administration SHORTNESS OF BREATH Atorvastatin Calcium 40 mg 09/20/16 22:00 09/24/16 21:46 Lipitor - PO 40 mg HS [facility] Administration Ceftriaxone Sodium 2 gm 09/23/16 10:00 09/25/16 09:16 Rocephin 2gm Ivpb (Pre-Docked) IVPB 2 gm DAILY [facility] Administration Ferrous Sulfate 325 mg 09/21/16 08:00 09/25/16 16:40 Feosol - PO 325 mg TIDCM [facility] Administration Metronidazole 100 mls @ 100 mls/hr 09/21/16 14:30 09/25/16 17:17 Flagyl 500mg Premixed Ivpb - IVPB 100 mls/hr Q8H-IV [facility] Administration Sodium Chloride 1,000 mls @ 70 mls/hr 09/22/16 13:15 09/25/16 17:16 Normal Saline - IV Not Given ASDIR [facility] Insulin Aspart 1 vial 09/20/16 22:00 09/25/16 16:51 Novolog Vial Sliding Scale - SQ Not Given ACHS [facility] Protocol Lisinopril 5 mg 09/21/16 10:00 09/25/16 09:20 Prinivil PO 5 mg DAILY [facility] Administration Metformin HCl 500 mg 09/21/16 07:00 09/25/16 16:40 Glucophage - PO 500 mg BIDI [facility] Administration Pantoprazole Sodium 40 mg 09/21/16 10:00 09/25/16 09:20 Protonix - PO Not Given DAILY [facility] Phenytoin Sodium 300 mg 09/21/16 19:15 09/25/16 09:20 Dilantin - PO 300 mg DAILY [facility] Administration Risperidone 0.25 mg 09/21/16 10:00 09/25/16 09:20 Risperdal - PO 0.25 mg DAILY [facility] Administration Sertraline HCl 100 mg 09/21/16 10:00 09/25/16 09:20 Zoloft - PO 100 mg DAILY [facility] Administration Impression: Aspiration Pneumonia Anemia-- nl B-12, TSH, No "M" spike Fe++ saturation--5% Medical status to dictate ?? of GI assessment.
[2016-09-25] MEDS ORDERED: INSULIN (NOVOLOG) ASPART 100 UNITS/ML 10ML VIAL ONE (21:11)
[2016-09-25] MEDS: ATORVASTATIN CA 40 MG TABLET (FP) PO SCH (21:14)
[2016-09-26] MEDS: METRONIDAZOLE 500 MG PREMIXED 100 ML IVPB SCH ×3 (01:15→18:01)
[2016-09-26] MEDS: INSULIN SLIDING SCALE (NOVOLOG) 1 VIAL SQ SCH ×4 (06:25→21:37)
[2016-09-26] MEDS: metFORMIN HCL 500 MG TABLET (FP) PO SCH ×2 (06:25→18:01)
[2016-09-26 08:07] LABS: IMMUNOGLOBULIN A QN 194 mg/dL (90-386)
--- NOTE | 2016-09-26 09:19 | PN ---
Progress Note, Physician - Current Medication List Current Medications: Active Medications Acetaminophen (Tylenol -) 650 mg PO Q4H PRN PRN Reason: FEVER OR PAIN Last Admin: 09/23/16 21:58 Dose: 650 mg Albuterol/Ipratropium (Duoneb -) 1 amp NEB Q4H PRN PRN Reason: SHORTNESS OF BREATH Last Admin: 09/25/16 10:09 Dose: 1 amp Atorvastatin Calcium (Lipitor -) 40 mg PO HS [facility] Last Admin: 09/25/16 21:14 Dose: 40 mg Ceftriaxone Sodium (Rocephin 2gm Ivpb (Pre-Docked)) 2 gm IVPB DAILY [facility] Last Admin: 09/25/16 09:16 Dose: 2 gm Ferrous Sulfate (Feosol -) 325 mg PO TIDCM [facility] Last Admin: 09/25/16 16:40 Dose: 325 mg Metronidazole (Flagyl 500mg Premixed Ivpb -) 100 mls @ 100 mls/hr IVPB Q8H-IV [facility] Last Admin: 09/26/16 01:15 Dose: 100 mls/hr Sodium Chloride (Normal Saline -) 1,000 mls @ 70 mls/hr IV ASDIR [facility] Last Admin: 09/25/16 21:15 Dose: 70 mls/hr Insulin Aspart (Novolog Vial Sliding Scale -) 1 vial SQ ACHS [facility] PRN Reason: Protocol Last Admin: 09/26/16 06:25 Dose: Not Given Lisinopril (Prinivil) 5 mg PO DAILY [facility] Last Admin: 09/25/16 09:20 Dose: 5 mg Metformin HCl (Glucophage -) 500 mg PO BIDI [facility] Last Admin: 09/26/16 06:25 Dose: Not Given Pantoprazole Sodium (Protonix -) 40 mg PO DAILY [facility] Last Admin: 09/25/16 09:20 Dose: Not Given Phenytoin Sodium (Dilantin -) 300 mg PO DAILY [facility] Last Admin: 09/25/16 09:20 Dose: 300 mg Risperidone (Risperdal -) 0.25 mg PO DAILY [facility] Last Admin: 09/25/16 09:20 Dose: 0.25 mg Sertraline HCl (Zoloft -) 100 mg PO DAILY [facility] Last Admin: 09/25/16 09:20 Dose: 100 mg - Objective Vital Signs: Vital Signs Temperature 98.1 F 09/26/16 06:00 Pulse Rate 118 H 09/26/16 06:00 Respiratory Rate 16 09/26/16 06:00 Blood Pressure 140/85 09/26/16 06:00 O2 Sat by Pulse Oximetry (%) 92 L 09/25/16 20:51 Cardiovascular: Yes: Regular Rate and Rhythm Respiratory: Yes: Regular, CTA Bilaterally Gastrointestinal: Yes: Normal Bowel Sounds, Soft Labs: CBC, BMP 09/25/16 07:30 09/25/16 06:00 Problem List - Problems (1) New onset seizure Code(s): R56.9 - UNSPECIFIED CONVULSIONS (2) Tachycardia Code(s): R00.0 - TACHYCARDIA, UNSPECIFIED (3) Developmental disability Code(s): F89 - UNSPECIFIED DISORDER OF PSYCHOLOGICAL DEVELOPMENT (4) Hypertension Code(s): I10 - ESSENTIAL (PRIMARY) HYPERTENSION (5) Fever Code(s): R50.9 - FEVER, UNSPECIFIED (6) Leukocytosis Code(s): D72.829 - ELEVATED WHITE BLOOD CELL COUNT, UNSPECIFIED (7) Anemia Code(s): D64.9 - ANEMIA, UNSPECIFIED (8) Abnormal LFTs Code(s): R79.89 - OTHER SPECIFIED ABNORMAL FINDINGS OF BLOOD CHEMISTRY Assessment/Plan - Problems (1) Aspiration pneumonia Assessment/Plan: MBS normal abx per ID seen by rama crowder Code(s): J69.0 - PNEUMONITIS DUE TO INHALATION OF FOOD AND VOMIT (2) Fever Assessment/Plan: blod cultures negative ID on board flagyl and rocephin Code(s): R50.9 - FEVER, UNSPECIFIED (3) New onset seizure Assessment/Plan: eeg and MRI negative seizure meds Code(s): R56.9 - UNSPECIFIED CONVULSIONS (4) Hyperlipidemia Assessment/Plan: statin Code(s): E78.5 - HYPERLIPIDEMIA, UNSPECIFIED (5) Hypertension Assessment/Plan: mionitior Code(s): I10 - ESSENTIAL (PRIMARY) HYPERTENSION (6) Type 2 diabetes mellitus Assessment/Plan: metformin Code(s): E11.9 - TYPE 2 DIABETES MELLITUS WITHOUT COMPLICATIONS
[2016-09-26] MEDS: PHENYTOIN NA EXTENDED 100 MG CAPSULE (FP) PO SCH (10:17)
[2016-09-26] MEDS: FERROUS SO4 325 MG TABLET (FP) PO SCH ×3 (10:17→18:01)
[2016-09-26] MEDS: risperiDONE 0.25 MG TABLET (FP) PO SCH (10:20)
[2016-09-26] MEDS: LISINOPRIL 5 MG TABLET (FP) PO SCH (10:20)
[2016-09-26] MEDS: SERTRALINE HCL 50 MG TABLET (FP) PO SCH (10:21)
[2016-09-26] MEDS: cefTRIAXone 2 GM/100 ML BAG (PRE-DOCKED) IVPB SCH (10:21)
[2016-09-26] MEDS: PANTOPRAZOLE 40 MG TABLET (FP) PO SCH (10:21)
--- NOTE | 2016-09-26 10:33 | PN ---
Progress Note (short form) - Note Progress Note: PULMONARY APPEARS STABLE/ASKING TO EAT VSS/AFEBRILE ANICTERIC SCATTERED RHONCHI RIGHT S1S2 RSR BS+ NO EDEMA LABS/MEDS/NOTES/IMAGING REVIEWED Aspiration Pneumonia (right lung multi-lobar w small pleural effusion) Autism Sepsis Seizure Disorder HTN DM - continue antibiotics - aspiration precautions - O2 to keep SpO2 >90% - inhaled bronchodilators - DVT prophylaxis - If clinical deterioration would then need thoracentesis will follow
--- NOTE | 2016-09-26 11:20 | PN ---
Physical Exam: SUBJECTIVE: Patient seen and examined at bed side this morning. Said " Eat, Pop corn, cookie" OBJECTIVE: Vital Signs Period Temp Pulse Resp BP Sys/Soliz Pulse Ox Last 24 Hr 98.1 F-98.8 F 112-118 16-20 125-140/56-85 92 GENERAL: Awake, alert, in no acute distress. HEAD: Normal with no signs of trauma. EYES: PEERLA, no pallor or icterus. EARS, NOSE, THROAT: Ears normal. NECK: Supple. LUNGS: Uncooperative hence couldn't listen to added sounds. HEART: S1, S2 no murmur. ABDOMEN: Soft, nontender, not distended, normoactive bowel sounds, no guarding, no rebound, no masses. No hepatomegaly or splenomegaly. MUSCULOSKELETAL: Normal range of motion at all joints. No bony deformities or tenderness. No CVA tenderness. UPPER EXTREMITIES: 2+ pulses, warm, well-perfused. No cyanosis. No clubbing. Cap refill <2 seconds. No peripheral edema. LOWER EXTREMITIES: 2+ pulses, warm, well-perfused. No calf tenderness. No peripheral edema. NEUROLOGICAL: Cranial nerves II-XII intact. Reflexes intact. Spoke single words like "popcorn, eat, sit" PSYCHIATRIC:Poor eye contact. Appropriate mood and affect. SKIN: Warm, dry, normal turgor, no rashes or lesions noted. Laboratory Results - last 24 hr 09/23/16 09/25/16 09/25/16 05:50 12:03 16:42 POC Glucometer 182 112 Stool Occult Blood IgA 194 Tiss Transglutamin IgA < 2 09/25/16 09/26/16 09/26/16 21:06 05:54 07:00 POC Glucometer 134 99 Stool Occult Blood Negative IgA Tiss Transglutamin IgA Active Medications Generic Name Dose Route Start Last Admin Trade Name Freq PRN Reason Stop Dose Admin Acetaminophen 650 mg 09/21/16 09:53 09/23/16 21:58 Tylenol - PO 650 mg Q4H PRN Administration FEVER OR PAIN Albuterol/Ipratropium 1 amp 09/21/16 13:36 09/25/16 10:09 Duoneb - NEB 1 amp Q4H PRN Administration SHORTNESS OF BREATH Atorvastatin Calcium 40 mg 09/20/16 22:00 09/25/16 21:14 Lipitor - PO 40 mg HS INEZ Administration Ceftriaxone Sodium 2 gm 09/23/16 10:00 09/26/16 10:21 Rocephin 2gm Ivpb (Pre-Docked) IVPB 2 gm DAILY INEZ Administration Ferrous Sulfate 325 mg 09/21/16 08:00 09/26/16 10:17 Feosol - PO 325 mg TIDCM INEZ Administration Metronidazole 100 mls @ 100 mls/hr 09/21/16 14:30 09/26/16 10:18 Flagyl 500mg Premixed Ivpb - IVPB 100 mls/hr Q8H-IV [facility]EZ Administration Sodium Chloride 1,000 mls @ 70 mls/hr 09/22/16 13:15 09/25/16 21:15 Normal Saline - IV 70 mls/hr ASDIR [facility] Administration Insulin Aspart 1 vial 09/20/16 22:00 09/26/16 06:25 Novolog Vial Sliding Scale - SQ Not Given ACHS INEZ Protocol Lisinopril 5 mg 09/21/16 10:00 09/26/16 10:20 Prinivil PO 5 mg DAILY INEZ Administration Metformin HCl 500 mg 09/21/16 07:00 09/26/16 06:25 Glucophage - PO Not Given BIDI INEZ Pantoprazole Sodium 40 mg 09/21/16 10:00 09/26/16 10:21 Protonix - PO 40 mg DAILY INEZ Administration Phenytoin Sodium 300 mg 09/21/16 19:15 09/26/16 10:17 Dilantin - PO 300 mg DAILY INEZ Administration Risperidone 0.25 mg 09/21/16 10:00 09/26/16 10:20 Risperdal - PO 0.25 mg DAILY INEZ Administration Sertraline HCl 100 mg 09/21/16 10:00 09/26/16 10:21 Zoloft - PO 100 mg DAILY INEZ Administration 55 year old male with significant past medical history of Autism, DM, HTN, HLD, H. pylori was brought in via EMS after a witnessed seizure. Assessment:- 1. Witnessed Seizure 2. Aspiration pneumonia (right lung multi-lobar with small pleural effusion) 3. Austism 4. HTN 5. HLD 6. DM-II 7. H. pylori recently diagnosed 8. Hypochromic, microcytic anemia Plan:- - Unusual to have new onset seizure at the age of 55 years, could be due to metabolic syndrome vs epilepsy - CT head negative. - Aspiration pneumonia given the h/o vomiting post seizure. CXR showed new Right patchy infiltrate. Initial CXR was negative - Blood cultures/Urine cultures No growth- results may alter since patient was being treated with triple therapy (clarithromycin, pantoprazole, augmentin) for H. pylori. - Patient started on Ceftriaxone (09/23/2016) and Metronidazole (09/21/2016) - Monitor for seizure activity - Seizure precautions # FEN: IV fluids @ 70mls/hr Electrolytes to be repeated tomorrow. Diabetic/Sodium controlled diet # Prophylaxis For GI: ON Pantoprazole For DVT: Not indicated Illness, Investigation and Plan of care explained to the patient's sister over the phone on admission. She verbalized understanding. Case discussed with Dr. Coronel. Thank you for the consultative opportunity. Visit type - Emergency Visit Emergency Visit: Yes ED Registration Date: 09/20/16 Care time: The patient presented to the Emergency Department on the above date and was hospitalized for further evaluation of their emergent condition. - New Patient This patient is new to me today: No - Critical Care Critical Care patient: No
--- NOTE | 2016-09-26 11:42 | PN ---
Progress Note, DIAL BUFFER - Note Progress Note: Selected Entries 09/25/16 09/25/16 09/25/16 02:00 06:00 10:00 Breakfast Lunch Supper Temperature 98.4 F 98.4 F 98.4 F 09/25/16 09/25/16 09/25/16 11:25 14:01 18:50 Breakfast 50% Lunch 100% Supper 75% Temperature 98.8 F 98.1 F 09/25/16 09/26/16 09/26/16 20:44 02:12 06:00 Breakfast Lunch Supper Temperature 98.2 F 98.3 F 98.1 F 09/26/16 09:03 Breakfast 75% Lunch Supper Temperature MBS reviewed with staff. Reported to be tolerating diet well. Pt feeds himself, per nursing, without difficulty reported or observed. No further f/u indicated
[2016-09-26] MEDS: SODIUM CHLORIDE 1,000 ML IV SCH (13:21)
[2016-09-26 14:24] LABS: Hgb A2 1.7 % (0.7-3.1)
[2016-09-26] MEDS ORDERED: INSULIN (NOVOLOG) ASPART 100 UNITS/ML 10ML VIAL ONE (21:28)
--- NOTE | 2016-09-26 21:34 | PN ---
Teaching Attending Note Name of Resident: Radha Rosales ATTENDING PHYSICIAN STATEMENT I saw and evaluated the patient. I reviewed the resident's note and discussed the case with the resident. I agree with the resident's findings and plan as documented. SUBJECTIVE: seen earlier with the resident doing well no complaints OBJECTIVE: ASSESSMENT AND PLAN: aspiration pneumonia new onset seizures doing well no more fevers continue rocephin/flagyl ?maybe home Saturday on po augmentin if he continues to improve Problem List - Problems (1) Aspiration pneumonia Code(s): J69.0 - PNEUMONITIS DUE TO INHALATION OF FOOD AND VOMIT (2) New onset seizure Code(s): R56.9 - UNSPECIFIED CONVULSIONS
[2016-09-26] MEDS: ATORVASTATIN CA 40 MG TABLET (FP) PO SCH (21:37)
[2016-09-27] MEDS: METRONIDAZOLE 500 MG PREMIXED 100 ML IVPB SCH ×3 (01:47→17:05)
[2016-09-27] MEDS: INSULIN SLIDING SCALE (NOVOLOG) 1 VIAL SQ SCH ×4 (07:30→21:36)
[2016-09-27] MEDS: metFORMIN HCL 500 MG TABLET (FP) PO SCH ×2 (07:30→17:05)
--- NOTE | 2016-09-27 08:31 | PN ---
Progress Note, Physician History of Present Illness: IN BED COMFORTABLE SISTER AT BEDSIDE - Current Medication List Current Medications: Active Medications Acetaminophen (Tylenol -) 650 mg PO Q4H PRN PRN Reason: FEVER OR PAIN Last Admin: 09/23/16 21:58 Dose: 650 mg Albuterol/Ipratropium (Duoneb -) 1 amp NEB Q4H PRN PRN Reason: SHORTNESS OF BREATH Last Admin: 09/25/16 10:09 Dose: 1 amp Atorvastatin Calcium (Lipitor -) 40 mg PO HS [facility] Last Admin: 09/26/16 21:37 Dose: 40 mg Ceftriaxone Sodium (Rocephin 2gm Ivpb (Pre-Docked)) 2 gm IVPB DAILY [facility] Last Admin: 09/26/16 10:21 Dose: 2 gm Ferrous Sulfate (Feosol -) 325 mg PO TIDCM [facility] Last Admin: 09/26/16 18:01 Dose: 325 mg Metronidazole (Flagyl 500mg Premixed Ivpb -) 100 mls @ 100 mls/hr IVPB Q8H-IV [facility] Last Admin: 09/27/16 01:47 Dose: 100 mls/hr Sodium Chloride (Normal Saline -) 1,000 mls @ 70 mls/hr IV ASDIR [facility] Last Admin: 09/26/16 13:21 Dose: 70 mls/hr Insulin Aspart (Novolog Vial Sliding Scale -) 1 vial SQ ACHS [facility] PRN Reason: Protocol Last Admin: 09/27/16 07:30 Dose: Not Given Lisinopril (Prinivil) 5 mg PO DAILY [facility] Last Admin: 09/26/16 10:20 Dose: 5 mg Metformin HCl (Glucophage -) 500 mg PO BIDI [facility] Last Admin: 09/27/16 07:30 Dose: Not Given Pantoprazole Sodium (Protonix -) 40 mg PO DAILY [facility] Last Admin: 09/26/16 10:21 Dose: 40 mg Phenytoin Sodium (Dilantin -) 300 mg PO DAILY [facility] Last Admin: 09/26/16 10:17 Dose: 300 mg Risperidone (Risperdal -) 0.25 mg PO DAILY [facility] Last Admin: 09/26/16 10:20 Dose: 0.25 mg Sertraline HCl (Zoloft -) 100 mg PO DAILY [facility] Last Admin: 09/26/16 10:21 Dose: 100 mg - Objective Vital Signs: Vital Signs Temperature 97.6 F 09/27/16 01:40 Pulse Rate 112 H 09/27/16 01:40 Respiratory Rate 18 09/27/16 01:40 Blood Pressure 114/74 09/27/16 01:40 O2 Sat by Pulse Oximetry (%) 92 L 09/26/16 22:00 Cardiovascular: Yes: Tachycardia, S1, S2 Respiratory: Yes: Regular, CTA Bilaterally Gastrointestinal: Yes: Normal Bowel Sounds, Soft Edema: No Labs: CBC, BMP 09/25/16 07:30 09/25/16 06:00 Problem List - Problems (1) New onset seizure Code(s): R56.9 - UNSPECIFIED CONVULSIONS (2) Tachycardia Code(s): R00.0 - TACHYCARDIA, UNSPECIFIED (3) Developmental disability Code(s): F89 - UNSPECIFIED DISORDER OF PSYCHOLOGICAL DEVELOPMENT (4) Hypertension Code(s): I10 - ESSENTIAL (PRIMARY) HYPERTENSION (5) Fever Code(s): R50.9 - FEVER, UNSPECIFIED (6) Leukocytosis Code(s): D72.829 - ELEVATED WHITE BLOOD CELL COUNT, UNSPECIFIED (7) Anemia Code(s): D64.9 - ANEMIA, UNSPECIFIED (8) Abnormal LFTs Code(s): R79.89 - OTHER SPECIFIED ABNORMAL FINDINGS OF BLOOD CHEMISTRY Assessment/Plan - Problems (1) Aspiration pneumonia Assessment/Plan: MBS normal abx per ID--PO IN AM seen by rama crowder Code(s): J69.0 - PNEUMONITIS DUE TO INHALATION OF FOOD AND VOMIT (2) Fever Assessment/Plan: blod cultures negative ID on board flagyl and rocephin Code(s): R50.9 - FEVER, UNSPECIFIED (3) New onset seizure Assessment/Plan: eeg and MRI negative seizure meds Code(s): R56.9 - UNSPECIFIED CONVULSIONS (4) Hyperlipidemia Assessment/Plan: statin Code(s): E78.5 - HYPERLIPIDEMIA, UNSPECIFIED (5) Hypertension Assessment/Plan: monitor Code(s): I10 - ESSENTIAL (PRIMARY) HYPERTENSION (6) Type 2 diabetes mellitus Assessment/Plan: metformin Code(s): E11.9 - TYPE 2 DIABETES MELLITUS WITHOUT COMPLICATIONS (7) Tachycardia Assessment/Plan: EKG AND ECHO
[2016-09-27] MEDS ORDERED: PT OWN MED DRAWER 7, Y5N ONE (09:09)
[2016-09-27] MEDS: SERTRALINE HCL 50 MG TABLET (FP) PO SCH (09:20)
[2016-09-27] MEDS: PANTOPRAZOLE 40 MG TABLET (FP) PO SCH (09:21)
[2016-09-27] MEDS: PHENYTOIN NA EXTENDED 100 MG CAPSULE (FP) PO SCH (09:21)
[2016-09-27] MEDS: FERROUS SO4 325 MG TABLET (FP) PO SCH ×3 (09:21→17:05)
[2016-09-27] MEDS: LISINOPRIL 5 MG TABLET (FP) PO SCH (09:21)
[2016-09-27] MEDS: risperiDONE 0.25 MG TABLET (FP) PO SCH (09:21)
[2016-09-27] MEDS: cefTRIAXone 2 GM/100 ML BAG (PRE-DOCKED) IVPB SCH (09:22)
--- NOTE | 2016-09-27 12:25 | EKG ---
Test Reason : Blood Pressure : / mmHG Vent. Rate : 106 BPM Atrial Rate : 106 BPM P-R Int : 126 ms QRS Dur : 118 ms QT Int : 328 ms P-R-T Axes : 053 187 035 degrees QTc Int : 435 ms SINUS TACHYCARDIA RIGHT BUNDLE BRANCH BLOCK ABNORMAL ECG WHEN COMPARED WITH ECG OF 20-SEP-2016 20:05, RIGHT BUNDLE BRANCH BLOCK HAS REPLACED INCOMPLETE RIGHT BUNDLE BRANCH BLOCK T WAVE AMPLITUDE HAS DECREASED IN INFERIOR LEADS T WAVE INVERSION NOW EVIDENT IN ANTERIOR LEADS Confirmed by AGATHA NOVAK MD ([id number]) on 09/27/2016 12:25:02 PM Referred By: DERREK MELENDREZ Confirmed By:AGATHA NOVAK MD
[2016-09-27] MEDS: SODIUM CHLORIDE 1,000 ML IV SCH (13:11)
--- NOTE | 2016-09-27 13:37 | PN ---
Progress Note (short form) - Note Progress Note: PULMONARY No fevers recorded. Sitting in chair. Last Vital Signs Temp Pulse Resp BP Pulse Ox 98.2 F 108 H 18 128/71 92 L 09/27/16 10:00 09/27/16 10:00 09/27/16 10:00 09/27/16 10:00 09/27/16 10:00 Gen: NAD at rest Heart: tachycardic, regular Lung: right sided rales Abd: soft, nontender Ext: no edema CBC, BMP 09/25/16 07:30 09/25/16 06:00 Active Medications Acetaminophen (Tylenol -) 650 mg PO Q4H PRN PRN Reason: FEVER OR PAIN Last Admin: 09/23/16 21:58 Dose: 650 mg Albuterol/Ipratropium (Duoneb -) 1 amp NEB Q4H PRN PRN Reason: SHORTNESS OF BREATH Last Admin: 09/25/16 10:09 Dose: 1 amp Atorvastatin Calcium (Lipitor -) 40 mg PO HS [facility] Last Admin: 09/26/16 21:37 Dose: 40 mg Ceftriaxone Sodium (Rocephin 2gm Ivpb (Pre-Docked)) 2 gm IVPB DAILY [facility] Last Admin: 09/27/16 09:22 Dose: 2 gm Ferrous Sulfate (Feosol -) 325 mg PO TIDCM [facility] Last Admin: 09/27/16 13:10 Dose: 325 mg Metronidazole (Flagyl 500mg Premixed Ivpb -) 100 mls @ 100 mls/hr IVPB Q8H-IV [facility] Last Admin: 09/27/16 09:20 Dose: 100 mls/hr Sodium Chloride (Normal Saline -) 1,000 mls @ 70 mls/hr IV ASDIR [facility] Last Admin: 09/27/16 13:11 Dose: 70 mls/hr Insulin Aspart (Novolog Vial Sliding Scale -) 1 vial SQ ACHS [facility] PRN Reason: Protocol Last Admin: 09/27/16 11:43 Dose: Not Given Lisinopril (Prinivil) 5 mg PO DAILY [facility] Last Admin: 09/27/16 09:21 Dose: 5 mg Metformin HCl (Glucophage -) 500 mg PO BIDI [facility] Last Admin: 09/27/16 07:30 Dose: Not Given Pantoprazole Sodium (Protonix -) 40 mg PO DAILY [facility] Last Admin: 09/27/16 09:21 Dose: 40 mg Phenytoin Sodium (Dilantin -) 300 mg PO DAILY [facility] Last Admin: 09/27/16 09:21 Dose: 300 mg Risperidone (Risperdal -) 0.25 mg PO DAILY [facility] Last Admin: 09/27/16 09:21 Dose: 0.25 mg Sertraline HCl (Zoloft -) 100 mg PO DAILY [facility] Last Admin: 09/27/16 09:20 Dose: 100 mg A/P Aspiration Pneumonia Autism Sepsis Seizure Disorder HTN DM - continue antibiotics per ID - aspiration precautions - O2 to keep SpO2 >90% - inhaled bronchodilators - DVT prophylaxis
--- NOTE | 2016-09-27 15:38 | PN ---
Physical Exam: SUBJECTIVE: Patient seen and examined at bed side this morning. Said " Eat, Pop corn, cookie" OBJECTIVE: Vital Signs Period Temp Pulse Resp BP Sys/Soliz Pulse Ox Last 24 Hr 97.6 F-98.7 F 103-112 18-18 114-157/71-88 92-92 GENERAL: Awake, alert, in no acute distress. HEAD: Normal with no signs of trauma. EYES: PEERLA, no pallor or icterus. EARS, NOSE, THROAT: Ears normal. NECK: Supple. LUNGS: Uncooperative hence couldn't listen to added sounds. HEART: S1, S2 no murmur. ABDOMEN: Soft, nontender, not distended, normoactive bowel sounds, no guarding, no rebound, no masses. No hepatomegaly or splenomegaly. MUSCULOSKELETAL: Normal range of motion at all joints. No bony deformities or tenderness. No CVA tenderness. UPPER EXTREMITIES: 2+ pulses, warm, well-perfused. No cyanosis. No clubbing. Cap refill <2 seconds. No peripheral edema. LOWER EXTREMITIES: 2+ pulses, warm, well-perfused. No calf tenderness. No peripheral edema. NEUROLOGICAL: Cranial nerves II-XII intact. Reflexes intact. Spoke single words like "popcorn, eat, sit" PSYCHIATRIC:Poor eye contact. Appropriate mood and affect. SKIN: Warm, dry, normal turgor, no rashes or lesions noted. Laboratory Results - last 24 hr 09/23/16 09/26/16 09/26/16 05:50 17:55 21:35 POC Glucometer 151 135 Free Blanket LC, Quant 27.01 H Free Lambda LC, Quant 21.90 Free Blanket/Lambda Ratio 1.23 09/27/16 09/27/16 07:29 11:42 POC Glucometer 90 106 Free Blanket LC, Quant Free Lambda LC, Quant Free Blanket/Lambda Ratio Active Medications Generic Name Dose Route Start Last Admin Trade Name Freq PRN Reason Stop Dose Admin Acetaminophen 650 mg 09/21/16 09:53 09/23/16 21:58 Tylenol - PO 650 mg Q4H PRN Administration FEVER OR PAIN Albuterol/Ipratropium 1 amp 09/21/16 13:36 09/25/16 10:09 Duoneb - NEB 1 amp Q4H PRN Administration SHORTNESS OF BREATH Atorvastatin Calcium 40 mg 09/20/16 22:00 09/26/16 21:37 Lipitor - PO 40 mg HS [facility] Administration Ceftriaxone Sodium 2 gm 09/23/16 10:00 09/27/16 09:22 Rocephin 2gm Ivpb (Pre-Docked) IVPB 2 gm DAILY [facility] Administration Ferrous Sulfate 325 mg 09/21/16 08:00 09/27/16 13:10 Feosol - PO 325 mg TIDCM [facility] Administration Metronidazole 100 mls @ 100 mls/hr 09/21/16 14:30 09/27/16 09:20 Flagyl 500mg Premixed Ivpb - IVPB 100 mls/hr Q8H-IV [facility] Administration Sodium Chloride 1,000 mls @ 70 mls/hr 09/22/16 13:15 09/27/16 13:11 Normal Saline - IV 70 mls/hr ASDIR [facility] Administration Insulin Aspart 1 vial 09/20/16 22:00 09/27/16 11:43 Novolog Vial Sliding Scale - SQ Not Given ACHS [facility] Protocol Lisinopril 5 mg 09/21/16 10:00 09/27/16 09:21 Prinivil PO 5 mg DAILY [facility] Administration Metformin HCl 500 mg 09/21/16 07:00 09/27/16 07:30 Glucophage - PO Not Given BIDI [facility] Pantoprazole Sodium 40 mg 09/21/16 10:00 09/27/16 09:21 Protonix - PO 40 mg DAILY [facility] Administration Phenytoin Sodium 300 mg 09/21/16 19:15 09/27/16 09:21 Dilantin - PO 300 mg DAILY [facility] Administration Risperidone 0.25 mg 09/21/16 10:00 09/27/16 09:21 Risperdal - PO 0.25 mg DAILY [facility] Administration Sertraline HCl 100 mg 09/21/16 10:00 09/27/16 09:20 Zoloft - PO 100 mg DAILY [facility] Administration CT chest 09/24/2016: CT findings consistent with extensive alveolar consolidation in the right upper lobe, right middle lobe and right lower lobes consistent with multisegment right lung pneumonia with relative sparing of the left lung with no infiltrates observed in the left lung. Small bilateral pleural effusions and small pericardial effusion observed. Small reactive axillary and mediastinal lymph nodes identified with no cavity. 55 year old male with significant past medical history of Autism, DM, HTN, HLD, H. pylori was brought in via EMS after a witnessed seizure. Assessment:- 1. Witnessed Seizure 2. Aspiration pneumonia (right lung multi-lobar with small pleural effusion) 3. Austism 4. HTN 5. HLD 6. DM-II 7. H. pylori recently diagnosed 8. Hypochromic, microcytic anemia Plan:- - Unusual to have new onset seizure at the age of 55 years, could be due to metabolic syndrome vs epilepsy - CT head negative. - Aspiration pneumonia given the h/o vomiting post seizure. CXR showed new Right patchy infiltrate. Initial CXR was negative - Blood cultures/Urine cultures No growth- results may alter since patient was being treated with triple therapy (clarithromycin, pantoprazole, augmentin) for H. pylori. - Patient started on Ceftriaxone (09/23/2016) and Metronidazole (09/21/2016) - Monitor for seizure activity - Seizure precautions # FEN: IV fluids @ 70mls/hr Electrolytes to be repeated tomorrow. Diabetic/Sodium controlled diet # Prophylaxis For GI: ON Pantoprazole For DVT: Not indicated Illness, Investigation and Plan of care explained to the patient's sister over the phone on admission. She verbalized understanding. Case discussed with Dr. Coronel. Thank you for the consultative opportunity. Visit type - Emergency Visit Emergency Visit: Yes ED Registration Date: 09/20/16 Care time: The patient presented to the Emergency Department on the above date and was hospitalized for further evaluation of their emergent condition. - New Patient This patient is new to me today: No - Critical Care Critical Care patient: No
--- NOTE | 2016-09-27 17:12 | PN ---
Teaching Attending Note Name of Resident: Radha Rosales ATTENDING PHYSICIAN STATEMENT I saw and evaluated the patient. I reviewed the resident's note and discussed the case with the resident. I agree with the resident's findings and plan as documented. SUBJECTIVE: OBJECTIVE: ASSESSMENT AND PLAN: aspiration pneumonia new onset seizures doing well repeat cxray if stable, no objection to switchto po augmentin in am for another 7 days thanks Problem List - Problems (1) Aspiration pneumonia Code(s): J69.0 - PNEUMONITIS DUE TO INHALATION OF FOOD AND VOMIT (2) New onset seizure Code(s): R56.9 - UNSPECIFIED CONVULSIONS
[2016-09-27] MEDS: ATORVASTATIN CA 40 MG TABLET (FP) PO SCH (21:36)
[2016-09-28] MEDS: METRONIDAZOLE 500 MG PREMIXED 100 ML IVPB SCH ×2 (01:02→09:08)
[2016-09-28] MEDS: metFORMIN HCL 500 MG TABLET (FP) PO SCH (06:31)
[2016-09-28] MEDS: INSULIN SLIDING SCALE (NOVOLOG) 1 VIAL SQ SCH ×2 (06:31→12:53)
[2016-09-28] MEDS: LISINOPRIL 5 MG TABLET (FP) PO SCH (09:07)
[2016-09-28] MEDS: risperiDONE 0.25 MG TABLET (FP) PO SCH (09:07)
[2016-09-28] MEDS: SERTRALINE HCL 50 MG TABLET (FP) PO SCH (09:07)
[2016-09-28] MEDS: PANTOPRAZOLE 40 MG TABLET (FP) PO SCH (09:07)
[2016-09-28] MEDS: PHENYTOIN NA EXTENDED 100 MG CAPSULE (FP) PO SCH (09:07)
[2016-09-28] MEDS: cefTRIAXone 2 GM/100 ML BAG (PRE-DOCKED) IVPB SCH (09:08)
[2016-09-28] MEDS: FERROUS SO4 325 MG TABLET (FP) PO SCH ×2 (09:08→13:28)
--- NOTE | 2016-09-28 09:24 | DS ---
Physical Examination Vital Signs: Vital Signs Temperature 97.8 F 09/28/16 06:00 Pulse Rate 105 H 09/28/16 06:00 Respiratory Rate 18 09/28/16 06:00 Blood Pressure 113/66 09/28/16 06:00 O2 Sat by Pulse Oximetry (%) 92 L 09/27/16 21:00 Neck: Yes: Supple Cardiovascular: Yes: Regular Rate and Rhythm Respiratory: Yes: Regular, CTA Bilaterally Gastrointestinal: Yes: Normal Bowel Sounds, Soft Labs: CBC, BMP 09/25/16 07:30 09/25/16 06:00 Discharge Summary Reason For Visit: NEW ONSET SEIZURES/ TACHYCARDIA Current Active Problems Abnormal LFTs (Acute) Anemia (Acute) Aspiration pneumonia (Acute) Fever (Acute) Leukocytosis (Acute) New onset seizure (Acute) Tachycardia (Acute) Hospital Course: 55 year old with a past medical hx of autism, type 2 diabetes mellitus, hyperlipidemia, hypertension who presents to the ED via EMS for evaluation of a possible seizure while he was on the bus ride home from school. Per EMS, the business intern noted the patient had a seizure for 2-3 minutes, the nature of the seizure is unknown. The business intern states the patient vomited and defecated. EMS notes he has been post-ictal ever since and his blood pressure was 110/70 en route to the ED. The family denies a hx of seizure, and there has been no change in medications. The patient was in his usual state of health in the morning before he left for school. The patient lives with sister and brother in law. 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) Cardiovascular: Yes: HTN, Hyperlipdemia Pulmonary: No: COPD Endocrine: Yes: Diabetes Mellitus Assessment/Plan - Problems (1) Aspiration pneumonia Assessment/Plan: MBS normal abx per ID--PO IN AM seen by rama crowder Code(s): J69.0 - PNEUMONITIS DUE TO INHALATION OF FOOD AND VOMIT (2) Fever Assessment/Plan: blood cultures negative ID on board flagyl and Rocephin Code(s): R50.9 - FEVER, UNSPECIFIED (3) New onset seizure Assessment/Plan: eeg and MRI negative seizure meds Code(s): R56.9 - UNSPECIFIED CONVULSIONS (4) Hyperlipidemia Assessment/Plan: statin Code(s): E78.5 - HYPERLIPIDEMIA, UNSPECIFIED (5) Anemia Assessment/Plan: CHRONIC--S/P W/U AT [facility] monitor (6) Type 2 diabetes mellitus Assessment/Plan: metformin Code(s): E11.9 - TYPE 2 DIABETES MELLITUS WITHOUT COMPLICATIONS (7) Tachycardia Assessment/Plan: may be due to anemia EKG AND ECHO - Home Medications Comprehensive Discharge Medication List: Ambulatory Orders Atorvastatin Ca [Lipitor] 40 mg PO HS 01/15/14 Metformin HCl [Glucophage -] 500 mg PO BID 01/15/14 Risperidone [Risperdal] 0.25 mg PO DAILY 01/15/14 Lisinopril 5 mg PO DAILY 08/26/16 Sertraline HCl [Zoloft -] 100 mg PO DAILY 08/26/16 Amox-Tr/K Cl [Augmentin 875-125mg Tablet -] 1 tab PO BID@0800,1730 #12 tablet Ferrous Sulfate [Feosol] 325 mg PO TIDCM ud 09/03/16 Pantoprazole Sodium [Protonix -] 40 mg PO DAILY #30 tablet.ec 09/03/16 Clarithromycin 500 mg PO BID 09/20/16 Omeprazole 20 mg PO BID 09/20/16
[2016-09-28 10:18] LABS: BASOPHIL 0.4 % (0-2.0); EOSINOPHIL 3.9 % (0-4.5); MCH 22.5 pg (25.7-33.7); MCHC 31.9 g/dl (32.0-35.9); MEAN CELL VOLUME 70.4 fl (80-96); NEUTROPHILS 57.3 % (42.8-82.8); PLATELET COUNT 345 K/MM3 (134-434); RDW 19.9 % (11.9-15.9); WHITE BLOOD COUNT 10.7 K/mm3 (4.0-10.0)
[2016-09-28 10:45] LABS: ALBUMIN 2.2 g/dl (3.4-5.0); ALK PHOS 66 U/L (45-117); ANION GAP 7 (8-16); BILIRUBIN,TOTAL 0.1 mg/dL (0.2-1.0); CALCIUM 8.1 mg/dL (8.5-10.1); CO2 25 mmol/L (21-32); CREATININE 0.7 mg/dL (0.7-1.3); GLUCOSE,RANDOM 134 mg/dL (74-106); SGOT/AST 29 U/L (15-37); SGPT/ALT 41 U/L (12-78); TOT PROT 5.4 g/dl (6.4-8.2)
--- NOTE | 2016-09-28 12:54 | PN ---
Progress Note (short form) - Note Progress Note: PULMONARY APPEARS STABLE/ASKING TO EAT VSS/AFEBRILE ANICTERIC SCATTERED RHONCHI RIGHT S1S2 RSR BS+ NO EDEMA LABS/MEDS/NOTES/IMAGING REVIEWED Aspiration Pneumonia (right lung multi-lobar w small pleural effusion) Autism Sepsis Seizure Disorder HTN DM - continue antibiotics - aspiration precautions - O2 to keep SpO2 >90% - inhaled bronchodilators - DVT prophylaxis - Agree with continuing treatment in SNF will follow
[2016-09-28 15:25] VITALS: BP 106/74; PULSE 94; TEMP 97.6
== END 2016-09-28 17:25 | disposition home or self-care (01) | DRG 178 ==
LOC: JER 16:15 → JERBED 20:41 → J4W 09-21 02:02 → J4S 09-22 18:53
PROVIDERS: ADMIT Family Medicine; ATTEND Family Medicine
DX: J69.0 Pneumonitis due to inhalation of food and vomit (principal); F84.0 Autistic disorder; E87.2 Acidosis; J90 Pleural effusion, not elsewhere classified; E11.9 Type 2 diabetes mellitus without complications; E78.5 Hyperlipidemia, unspecified; I10 Essential (primary) hypertension; R00.0 Tachycardia, unspecified; D72.829 Elevated white blood cell count, unspecified; I45.19 Other right bundle-branch block; R56.9 Unspecified convulsions; D50.9 Iron deficiency anemia, unspecified
CPT/HCPCS: 36415; 36600; 70450-TC; 70551-TC; 71010-TC; 71250-TC; 72125-TC; 74230-TC; 76705-TC; 80053; 80185; 81003; 81015; 82272; 82375; 82550; 82553; 82607; 82728; 82784; 82803; 83021; 83050; 83516; 83540; 83550; 83605; 83615; 83883; 84155; 84165; 84443; 84484; 85025; 85044; 85660; 86334; 86704; 86705; 86706; 86707; 86803; 87040; 87086; 87340; 87350; 92611-GN; 93005; 93010; 93306-TC; 94640; 95816; 99284-25